=== PATIENT | female | born 1945 | race Caucasian/White ===

== ENCOUNTER 2017-07-24 12:47 | Emergency (ER) | payer MEDICARE, MEDICAID ==
[~2017-07-24] VITALS: Ht 160 cm; Wt 50.0 kg
[~2017-07-24 12:47] MED LIST: BAC10T PO; CITA20TA11 PO; LEVO25TA50 PO; LORA1TAB PO; MAG400T PO; METO50TA7 PO; NOR5T PO; NORCO10T PO; OMEP-84 PO; QUET-1 PO
[2017-07-24 13:25] VITALS: BP_DIAS 89
[2017-07-24 15:19] LABS: BASOPHILS % (AUTO) 0.6 % (0-1); EOSINOPHILS # (AUTO) 0.1 X10'3 (0-0.9); EOSINOPHILS % (AUTO) 2.2 % (0-6); HEMATOCRIT 39.4 % (35.0-45.0); HEMOGLOBIN 13.3 g/dl (12.0-16.0); LYMPHOCYTES # (AUTO) 1.1 X10'3 (1.1-4.8); LYMPHOCYTES % (AUTO) 20.3 % (21-51); MEAN CORPUSCULAR HEMOGLOBIN 34.5 PG (27.0-31.0); MEAN CORPUSCULAR HGB CONC 33.7 % (33.0-36.5); MEAN CORPUSCULAR VOLUME 102.4 FL (78-98); MEAN PLATELET VOLUME 6.7 FL (7.4-10.4); MONOCYTES # (AUTO) 0.5 X10'3 (0-0.9); MONOCYTES % (AUTO) 10.2 % (2-12); NEUTROPHILS # (AUTO) 3.5 X10'3 (1.8-7.7); NEUTROPHILS % (AUTO) 66.7 % (42-75); PLATELET COUNT 254 X10'3 (140-440); RED BLOOD COUNT 3.85 X10'6 (4.20-5.60); RED CELL DISTRIBUTION WIDTH 13.3 % (11.5-14.5); WHITE BLOOD COUNT 5.3 X10'3 (4.5-11.0)
[2017-07-24 15:30] VITALS: BP_SYST 145
[2017-07-24 15:33] LABS: ALANINE AMINOTRANSFERASE 39 U/L (12-78); ALBUMIN 3.9 G/DL (3.4-5.0); ALBUMIN/GLOBULIN RATIO 1.2 (1.1-1.5); ALKALINE PHOSPHATASE 112 IU/L (46-116); ANION GAP 9 (8-16); ASPARTATE AMINO TRANSFERASE 23 U/L (10-37); BILIRUBIN,TOTAL 0.3 MG/DL (0.1-1.0); BLOOD UREA NITROGEN 15 MG/DL (7-18); BUN/CREATININE RATIO 14.4 (6.6-38.0); CALCIUM 9.4 MG/DL (8.5-10.1); CHLORIDE 105 MMOL/L (99-107); CREATININE 1.04 MG/DL (0.40-0.90); GLUCOSE 95 MG/DL (70-104); POTASSIUM 3.5 MMOL/L (3.5-5.1); SODIUM 142 MMOL/L (135-145); TOTAL PROTEIN 7.2 G/DL (6.4-8.2); eGFR 52 ML/MIN
[2017-07-24 15:42] LABS: ETHANOL < 0.010 GM/DL (0.0-0.010)
[2017-07-24 16:07] LABS: CLARITY,URINE Clear (Clear); COLOR,URINE Yellow (Yellow); GLUCOSE, URINE Negative (Neg); KETONES,URINE Negative (Neg); LEUKOCYTE ESTERASE ,URINE Trace (Neg); NITRITES, URINE Negative (Neg); OCCULT BLOOD,URINE Negative (Neg); PH,URINE 5.5 (4.8-8.0); PROTEIN,URINE Negative (Neg)
[2017-07-24 16:09] LABS: UA COLLECTION TYPE CLN CATCH MIDSTREAM; URINE AMPHETAMINE SCREEN NEGATIVE (Neg); URINE BARBITUATE SCREEN NEGATIVE (Neg); URINE BENZODIAZEPINES SCREEN NEGATIVE (Neg); URINE CANNABINOID SCREEN POSITIVE (Neg); URINE COCAINE SCREEN NEGATIVE (Neg); URINE METHADONE SCREEN NEGATIVE (Neg); URINE OPIATE SCREEN POSITIVE (Neg); URINE PHENCYCLIDINE SCREEN NEGATIVE (Neg)
[2017-07-24 16:18] LABS: SQUAMOUS EPITHELIAL CELL,UR MODERATE /LPF (FEW); TRANSITIONAL EPI CELLS,URINE FEW /HPF
[2017-07-24 16:19] LABS: BACTERIA,URINE FEW /HPF (Neg); RBC,URINE NONE SEEN /HPF (0-2); RENAL CELLS, URINE FEW /HPF; WBC,URINE 0-4 /HPF (0-4)
[2017-07-25] MEDS ORDERED: SERT100T PO (08:22)
[2017-07-25] MEDS ORDERED: ZOLP10TA5 PO (08:22)
[2017-07-25] MEDS ORDERED: TRAZ-146 PO (08:22)
== END 2017-07-24 18:17 | disposition home or self-care (01) ==
LOC: ER 12:49
DX: R62.7 Adult failure to thrive (principal); R53.1 Weakness; F32.9 Major depressive disorder, single episode, unspecified; R63.0 Anorexia; F12.10 Cannabis abuse, uncomplicated; Z88.1 Allergy status to other antibiotic agents; Z79.899 Other long term (current) drug therapy
CPT/HCPCS: 36415; 80053; 80305; 80320; 81001; 84443; 85025; 99284

== ENCOUNTER 2017-07-24 17:25 | Inpatient (IN) | payer MEDICARE, MEDICAID ==
[~2017-07-24] VITALS: Ht 160 cm; Wt 49.9 kg
[2017-07-24 20:00] VITALS: BP 164/98
[2017-07-24] MEDS ORDERED: zolpidem 5mg tablet PO PRN (21:40)
[2017-07-24] MEDS: traZODone 50mg tablet PO SCH (21:58)
[2017-07-24] MEDS: HYDROcodone/acetaminophen 10/325mg tab PO PRN (21:58)
[2017-07-24] MEDS: pantoprazole 40mg Tablet.DR PO SCH (22:11)
[2017-07-25] MEDS ORDERED: LORazepam 1 MG tablet PO PRN
[2017-07-25] MEDS ORDERED: LORazepam 1 MG tablet PO SCH
[2017-07-25] MEDS ORDERED: levoTHYROXINE 25mcg tablet PO SCH (07:00)
[2017-07-25] MEDS: levoTHYROXINE 25mcg tablet PO SCH (07:09)
[2017-07-25] MEDS ORDERED: non-formulary drug (Omeprazole* (Prilosec*) 1 CAP) PO SCH (08:00)
[2017-07-25] MEDS ORDERED: sertraline 50mg tablet PO SCH (08:00)
[2017-07-25] MEDS ORDERED: ZOLP10TA5 PO (08:22)
[2017-07-25] MEDS ORDERED: SERT100T PO (08:22)
[2017-07-25] MEDS ORDERED: TRAZ-146 PO (08:22)
[2017-07-25] MEDS: amLODIPine 5mg tablet PO SCH ×2 (08:25→20:04)
[2017-07-25] MEDS ORDERED: non-formulary drug (Zolpidem Tartrate* (Ambien*) 1 TAB) PO PRN (08:25)
[2017-07-25] MEDS: pantoprazole 40mg Tablet.DR PO SCH ×2 (08:25→17:30)
[2017-07-25] MEDS: metoprolol succinate 25mg (24-HOUR) SR. Tablet PO SCH (08:26)
[2017-07-25 08:29] VITALS: BP 141/72
[2017-07-25] MEDS ORDERED: sertraline 50mg tablet PO ONE (08:35)
[2017-07-25 08:52] LABS: BASOPHILS # (AUTO) 0.1 X10'3 (0-0.2); BASOPHILS % (AUTO) 1.1 % (0-1); EOSINOPHILS # (AUTO) 0.1 X10'3 (0-0.9); HEMATOCRIT 39.9 % (35.0-45.0); HEMOGLOBIN 13.6 g/dl (12.0-16.0); LYMPHOCYTES % (AUTO) 20.7 % (21-51); MEAN CORPUSCULAR HEMOGLOBIN 34.9 PG (27.0-31.0); MEAN CORPUSCULAR VOLUME 102.5 FL (78-98); MONOCYTES # (AUTO) 0.4 X10'3 (0-0.9); MONOCYTES % (AUTO) 9.3 % (2-12); NEUTROPHILS # (AUTO) 3.1 X10'3 (1.8-7.7); NEUTROPHILS % (AUTO) 65.9 % (42-75); PLATELET COUNT 235 X10'3 (140-440); RED BLOOD COUNT 3.89 X10'6 (4.20-5.60); RED CELL DISTRIBUTION WIDTH 13.1 % (11.5-14.5); WHITE BLOOD COUNT 4.6 X10'3 (4.5-11.0)
[2017-07-25 09:12] LABS: ALANINE AMINOTRANSFERASE 35 U/L (12-78); ALBUMIN 3.8 G/DL (3.4-5.0); ALBUMIN/GLOBULIN RATIO 1.2 (1.1-1.5); ALKALINE PHOSPHATASE 107 IU/L (46-116); ANION GAP 8 (8-16); ASPARTATE AMINO TRANSFERASE 22 U/L (10-37); BILIRUBIN,TOTAL 0.5 MG/DL (0.1-1.0); BLOOD UREA NITROGEN 12 MG/DL (7-18); BUN/CREATININE RATIO 10.9 (6.6-38.0); CALCIUM 9.6 MG/DL (8.5-10.1); CHLORIDE 106 MMOL/L (99-107); GLUCOSE 105 MG/DL (70-104); POTASSIUM 3.9 MMOL/L (3.5-5.1); SODIUM 142 MMOL/L (135-145); TOTAL CARBON DIOXIDE 28.1 MMOL/L (24-32); TOTAL PROTEIN 7.1 G/DL (6.4-8.2); eGFR 49 ML/MIN
[2017-07-25 20:00] VITALS: BP 131/73
[2017-07-25] MEDS: LORazepam 1 MG tablet PO PRN (20:04)
[2017-07-25] MEDS: traZODone 50mg tablet PO SCH (20:04)
[2017-07-25] MEDS: HYDROcodone/acetaminophen 10/325mg tab PO PRN ×2 (20:07→21:59)
[2017-07-25] MEDS ORDERED: non-formulary drug (Trazodone HCl 1 TAB) PO SCH (21:00)
[2017-07-26] MEDS: levoTHYROXINE 25mcg tablet PO SCH (07:32)
[2017-07-26] MEDS: pantoprazole 40mg Tablet.DR PO SCH ×2 (07:32→17:49)
[2017-07-26] MEDS: sertraline 50mg tablet PO SCH (07:33)
[2017-07-26 07:51] VITALS: BP 113/69
[2017-07-26] MEDS: metoprolol succinate 25mg (24-HOUR) SR. Tablet PO SCH (07:58)
[2017-07-26] MEDS: amLODIPine 5mg tablet PO SCH ×2 (07:58→20:31)
[2017-07-26] MEDS ORDERED: sertraline 50mg tablet PO SCH ×2 (08:00)
[2017-07-26] MEDS ORDERED: non-formulary drug (Sertraline Hcl (Zoloft) 1 TAB) PO SCH (08:00)
[2017-07-26] MEDS: HYDROcodone/acetaminophen 10/325mg tab PO PRN ×2 (11:58→20:37)
[2017-07-26 20:27] VITALS: BP 120/63
[2017-07-26] MEDS: traZODone 50mg tablet PO SCH (20:31)
[2017-07-27] MEDS: pantoprazole 40mg Tablet.DR PO SCH ×2 (07:19→17:18)
[2017-07-27] MEDS: levoTHYROXINE 25mcg tablet PO SCH (07:19)
[2017-07-27 08:00] VITALS: BP 106/70
[2017-07-27] MEDS: amLODIPine 5mg tablet PO SCH ×2 (08:00→20:17)
[2017-07-27] MEDS: sertraline 50mg tablet PO SCH (08:09)
[2017-07-27] MEDS: metoprolol succinate 25mg (24-HOUR) SR. Tablet PO SCH (08:10)
[2017-07-27] MEDS: HYDROcodone/acetaminophen 10/325mg tab PO PRN ×2 (10:53→19:25)
[2017-07-27] MEDS: Protein Shake (high protein) 240ml (8oz) cup PO SCH (17:30)
[2017-07-27 20:00] VITALS: BP 116/59
[2017-07-27] MEDS: traZODone 50mg tablet PO SCH (20:17)
[2017-07-28 08:00] VITALS: BP 135/77
[2017-07-28] MEDS: pantoprazole 40mg Tablet.DR PO SCH ×2 (08:13→16:52)
[2017-07-28] MEDS: amLODIPine 5mg tablet PO SCH ×2 (08:13→20:22)
[2017-07-28] MEDS: metoprolol succinate 25mg (24-HOUR) SR. Tablet PO SCH (08:13)
[2017-07-28] MEDS: levoTHYROXINE 25mcg tablet PO SCH (08:13)
[2017-07-28] MEDS: HYDROcodone/acetaminophen 10/325mg tab PO PRN ×2 (09:25→20:21)
[2017-07-28] MEDS: sertraline 50mg tablet PO SCH (09:26)
[2017-07-28] MEDS: Protein Shake (high protein) 240ml (8oz) cup PO SCH ×2 (12:30→17:30)
[2017-07-28 20:00] VITALS: BP 130/68
[2017-07-28] MEDS: traZODone 50mg tablet PO SCH (20:21)
[2017-07-28 22:42] VITALS: BP 130/68
[2017-07-29] MEDS: pantoprazole 40mg Tablet.DR PO SCH ×2 (07:32→17:30)
[2017-07-29] MEDS: levoTHYROXINE 25mcg tablet PO SCH (07:32)
[2017-07-29 07:36] VITALS: BP 109/59
[2017-07-29] MEDS: amLODIPine 5mg tablet PO SCH ×2 (08:00→20:25)
[2017-07-29] MEDS: metoprolol succinate 25mg (24-HOUR) SR. Tablet PO SCH (08:25)
[2017-07-29] MEDS: HYDROcodone/acetaminophen 10/325mg tab PO PRN ×2 (08:26→20:34)
[2017-07-29] MEDS: Protein Shake (high protein) 240ml (8oz) cup PO SCH ×2 (12:30→18:00)
[2017-07-29] MEDS ORDERED: mag hydrox/Alum hydrox/simeth 30ml oral suspension PO ONE (15:40)
[2017-07-29] MEDS ORDERED: magnesium hydroxide 30ml (MOM) UD suspension PO ONE (15:40)
[2017-07-29 19:54] VITALS: BP 143/78
[2017-07-29] MEDS: traZODone 50mg tablet PO SCH (20:25)
[2017-07-30] MEDS: LORazepam 1 MG tablet PO PRN ×2 (00:12→20:47)
[2017-07-30] MEDS: HYDROcodone/acetaminophen 10/325mg tab PO PRN ×3 (02:40→20:47)
[2017-07-30 07:27] VITALS: BP 97/58
[2017-07-30] MEDS: levoTHYROXINE 25mcg tablet PO SCH (07:31)
[2017-07-30] MEDS ORDERED: magnesium hydroxide 30ml (MOM) UD suspension PO PRN (08:05)
[2017-07-30] MEDS: sertraline 50mg tablet PO SCH (08:22)
[2017-07-30] MEDS: pantoprazole 40mg Tablet.DR PO SCH ×2 (08:22→17:53)
[2017-07-30] MEDS: metoprolol succinate 25mg (24-HOUR) SR. Tablet PO SCH (08:22)
[2017-07-30] MEDS: amLODIPine 5mg tablet PO SCH ×2 (08:22→20:46)
[2017-07-30 08:29] VITALS: BP 111/64
[2017-07-30] MEDS: Protein Shake (high protein) 240ml (8oz) cup PO SCH ×2 (12:30→17:30)
[2017-07-30 18:57] VITALS: BP 132/73
[2017-07-30 19:00] VITALS: BP 132/73
[2017-07-30] MEDS ORDERED: aripiprazole 5mg tablet PO SCH (21:00)
[2017-07-30] MEDS ORDERED: traZODone 50mg tablet PO SCH (21:00)
[2017-07-31 03:36] VITALS: BP 132/73
[2017-07-31] MEDS: levoTHYROXINE 25mcg tablet PO SCH (07:19)
[2017-07-31 08:00] VITALS: BP 114/64
[2017-07-31] MEDS: pantoprazole 40mg Tablet.DR PO SCH (08:07)
[2017-07-31] MEDS: sertraline 50mg tablet PO SCH (08:07)
[2017-07-31] MEDS: metoprolol succinate 25mg (24-HOUR) SR. Tablet PO SCH (08:07)
[2017-07-31] MEDS: amLODIPine 5mg tablet PO SCH (08:07)
[2017-07-31] MEDS ORDERED: ATI1T PO (08:57)
[2017-07-31] MEDS ORDERED: SERT100T10 PO (08:57)
[2017-07-31] MEDS ORDERED: TRAZ-143 PO (08:57)
[2017-07-31] MEDS ORDERED: ARIP5TAB20 PO (08:57)
[2017-07-31] MEDS: HYDROcodone/acetaminophen 10/325mg tab PO PRN (10:17)
== END 2017-07-31 14:10 | disposition home or self-care (01) | DRG 885 ==
LOC: ADULT MH 17:25
PROVIDERS: ADMIT Psychiatry & Neurology Psychiatry; ATTEND Psychiatry & Neurology Psychiatry
DX: F33.2 Major depressive disorder, recurrent severe without psychotic features (principal); E03.9 Hypothyroidism, unspecified; I10 Essential (primary) hypertension; F41.9 Anxiety disorder, unspecified; G47.00 Insomnia, unspecified; F12.90 Cannabis use, unspecified, uncomplicated; Z90.49 Acquired absence of other specified parts of digestive tract; Z79.899 Other long term (current) drug therapy; Z88.8 Allergy status to other drugs, medicaments and biological substances; Z85.819 Personal history of malignant neoplasm of unspecified site of lip, oral cavity, and pharynx; Z87.891 Personal history of nicotine dependence; Z85.118 Personal history of other malignant neoplasm of bronchus and lung; Z92.21 Personal history of antineoplastic chemotherapy; Z92.3 Personal history of irradiation; Z81.8 Family history of other mental and behavioral disorders; Z83.3 Family history of diabetes mellitus
CPT/HCPCS: 36415; 80053; 84443; 85025; 87070

== ENCOUNTER 2018-05-02 12:33 | Emergency (ER) | payer MEDICARE, MEDICAID ==
[~2018-05-02] VITALS: Ht 160 cm; Wt 58.0 kg
[~2018-05-02 12:33] MED LIST changes: +ARIP5TAB20 PO; +ATI1T PO; -BAC10T PO; -CITA20TA11 PO; -LORA1TAB PO; -MAG400T PO; +ONDA4TAB12 PO; -QUET-1 PO; +SERT100T10 PO; +TRAZ-218 PO
[2018-05-02] MEDS ORDERED: normal saline 1000ML IV soln IVB ONE (13:20)
[2018-05-02 13:42] LABS: ALANINE AMINOTRANSFERASE 25 U/L (12-78); ALBUMIN 3.9 G/DL (3.4-5.0); ALBUMIN/GLOBULIN RATIO 1.1 (1.1-1.5); ALKALINE PHOSPHATASE 150 IU/L (46-116); ANION GAP 6 (8-16); ASPARTATE AMINO TRANSFERASE 27 U/L (10-37); BILIRUBIN,TOTAL 0.6 MG/DL (0.1-1.0); BLOOD UREA NITROGEN 11 MG/DL (7-18); BUN/CREATININE RATIO 10.1 (6.6-38.0); CALCIUM 9.3 MG/DL (8.5-10.1); CHLORIDE 102 MMOL/L (99-107); CREATININE 1.09 MG/DL (0.40-0.90); GLUCOSE 94 MG/DL (70-104); POTASSIUM 3.3 MMOL/L (3.5-5.1); SODIUM 141 MMOL/L (135-145); TOTAL CARBON DIOXIDE 32.9 MMOL/L (24-32); TOTAL PROTEIN 7.6 G/DL (6.4-8.2); eGFR 49 ML/MIN
[2018-05-02 13:53] LABS: BASOPHILS % (AUTO) 0.8 % (0-1); EOSINOPHILS # (AUTO) 0.1 X10'3 (0-0.9); EOSINOPHILS % (AUTO) 2.4 % (0-6); LYMPHOCYTES # (AUTO) 1.1 X10'3 (1.1-4.8); LYMPHOCYTES % (AUTO) 18.5 % (21-51); MEAN CORPUSCULAR HEMOGLOBIN 34.2 PG (27.0-31.0); MEAN CORPUSCULAR HGB CONC 33.3 % (33.0-36.5); MEAN CORPUSCULAR VOLUME 102.5 FL (78-98); MEAN PLATELET VOLUME 7.5 FL (7.4-10.4); MONOCYTES # (AUTO) 0.6 X10'3 (0-0.9); MONOCYTES % (AUTO) 10.4 % (2-12); NEUTROPHILS # (AUTO) 4.1 X10'3 (1.8-7.7); NEUTROPHILS % (AUTO) 67.9 % (42-75); PLATELET COUNT 232 X10'3 (140-440); RED BLOOD COUNT 4.09 X10'6 (4.20-5.60); RED CELL DISTRIBUTION WIDTH 11.8 % (11.5-14.5); WHITE BLOOD COUNT 5.9 X10'3 (4.5-11.0)
[2018-05-02 14:58] LABS: CLARITY,URINE CLEAR (Clear); COLOR,URINE STRAW (Yellow); GLUCOSE, URINE NEGATIVE (Neg); KETONES,URINE NEGATIVE (Neg); LEUKOCYTE ESTERASE ,URINE NEGATIVE (Neg); NITRITES, URINE NEGATIVE (Neg); OCCULT BLOOD,URINE NEGATIVE (Neg); PROTEIN,URINE NEGATIVE (Neg); UROBILINOGEN,URINE 0.2 E.U/dL (0.2-1.0)
[2018-05-02 15:01] LABS: UA COLLECTION TYPE CLN CATCH MIDSTREAM
[2018-05-02 16:30] VITALS: BP 171/61
== END 2018-05-02 17:05 | disposition home or self-care (01) ==
LOC: ER 12:34
DX: S00.83XA Contusion of other part of head, initial encounter (principal); E86.0 Dehydration; R42 Dizziness and giddiness; F12.90 Cannabis use, unspecified, uncomplicated; F32.9 Major depressive disorder, single episode, unspecified; Z88.1 Allergy status to other antibiotic agents; Z79.899 Other long term (current) drug therapy; W01.198A Fall on same level from slipping, tripping and stumbling with subsequent striking against other object, initial encounter; Y93.89 Activity, other specified; Y92.89 Other specified places as the place of occurrence of the external cause; Y99.9 Unspecified external cause status
CPT/HCPCS: 36415; 70450; 80053; 81003; 85025; 96360; 99285

== ENCOUNTER 2018-05-30 16:41 | Inpatient (IN) | payer MEDICARE, MEDICAID ==
[~2018-05-30] VITALS: Ht 160 cm; Wt 57.4 kg
[2018-05-30 17:06] LABS: BASOPHILS # (AUTO) 0.1 X10'3 (0-0.2); BASOPHILS % (AUTO) 0.8 % (0-1); EOSINOPHILS # (AUTO) 0.2 X10'3 (0-0.9); EOSINOPHILS % (AUTO) 2.4 % (0-6); HEMATOCRIT 42.3 % (35.0-45.0); HEMOGLOBIN 14.3 g/dl (12.0-16.0); LYMPHOCYTES # (AUTO) 1.2 X10'3 (1.1-4.8); LYMPHOCYTES % (AUTO) 18.3 % (21-51); MEAN CORPUSCULAR HEMOGLOBIN 34.7 PG (27.0-31.0); MEAN CORPUSCULAR HGB CONC 33.9 % (33.0-36.5); MEAN CORPUSCULAR VOLUME 102.2 FL (78-98); MEAN PLATELET VOLUME 6.9 FL (7.4-10.4); MONOCYTES # (AUTO) 0.7 X10'3 (0-0.9); MONOCYTES % (AUTO) 9.8 % (2-12); NEUTROPHILS # (AUTO) 4.5 X10'3 (1.8-7.7); NEUTROPHILS % (AUTO) 68.7 % (42-75); PLATELET COUNT 266 X10'3 (140-440); RED BLOOD COUNT 4.14 X10'6 (4.20-5.60); RED CELL DISTRIBUTION WIDTH 11.9 % (11.5-14.5); WHITE BLOOD COUNT 6.7 X10'3 (4.5-11.0)
[2018-05-30 17:22] LABS: ALANINE AMINOTRANSFERASE 25 U/L (12-78); ALBUMIN 3.9 G/DL (3.4-5.0); ALBUMIN/GLOBULIN RATIO 1.1 (1.1-1.5); ALKALINE PHOSPHATASE 141 IU/L (46-116); ANION GAP 11 (8-16); ASPARTATE AMINO TRANSFERASE 23 U/L (10-37); BILIRUBIN,TOTAL 0.5 MG/DL (0.1-1.0); BLOOD UREA NITROGEN 19 MG/DL (7-18); BUN/CREATININE RATIO 15.1 (6.6-38.0); CALCIUM 9.8 MG/DL (8.5-10.1); CHLORIDE 97 MMOL/L (99-107); CREATININE 1.26 MG/DL (0.40-0.90); GLUCOSE 92 MG/DL (70-104); POTASSIUM 3.2 MMOL/L (3.5-5.1); PROTHROMBIN TIME 9.9 SECONDS (9.0-12.0); SODIUM 139 MMOL/L (135-145); TOTAL CARBON DIOXIDE 31.4 MMOL/L (24-32); TOTAL PROTEIN 7.6 G/DL (6.4-8.2); eGFR 42 ML/MIN
[2018-05-30 17:32] LABS: CLARITY,URINE CLEAR (Clear); COLOR,URINE YELLOW (Yellow); GLUCOSE, URINE NEGATIVE (Neg); KETONES,URINE NEGATIVE (Neg); LEUKOCYTE ESTERASE ,URINE NEGATIVE (Neg); NITRITES, URINE NEGATIVE (Neg); OCCULT BLOOD,URINE NEGATIVE (Neg); PROTEIN,URINE NEGATIVE (Neg); UROBILINOGEN,URINE 0.2 E.U/dL (0.2-1.0)
[2018-05-30 17:40] LABS: LIPASE 1191 U/L (73-393)
[2018-05-30 17:41] LABS: UA COLLECTION TYPE STRAIGHT CATH
[2018-05-30] MEDS ORDERED: normal saline 1000ML IV soln IVB ONE (18:05)
[2018-05-30] MEDS ORDERED: LEVO50TA8 PO (18:28)
[2018-05-30] MEDS ORDERED: ONDA4TAB9 SL (18:28)
[2018-05-30] MEDS ORDERED: LOSA25TA96 PO (18:28)
[2018-05-30] MEDS ORDERED: AMIT-189 PO (18:28)
[2018-05-30] MEDS ORDERED: PANT40TA4 PO (18:28)
[2018-05-30] MEDS ORDERED: LORA1TAB PO (18:28)
[2018-05-30] MEDS ORDERED: ondansetron/PF 4mg/2ml inj IV PRN ×4 (19:10→19:45)
[2018-05-30] MEDS ORDERED: mag hydrox/Alum hydrox/simeth 30ml oral suspension PO PRN ×4 (19:10→19:45)
[2018-05-30] MEDS ORDERED: acetaminophen 325mg tablet PO PRN ×4 (19:10→19:45)
[2018-05-30] MEDS ORDERED: magnesium hydroxide 30ml (MOM) UD suspension PO PRN ×4 (19:10→19:45)
[2018-05-30] MEDS ORDERED: LORazepam 1 MG tablet PO PRN (19:10)
[2018-05-30] MEDS ORDERED: HYDROcodone/acetaminophen 10/325mg tab PO PRN (19:45)
[2018-05-30] MEDS ORDERED: bisacodyl 10mg suppository rectal RC PRN (19:45)
[2018-05-30] MEDS ORDERED: diphenhydrAMINE 25mg capsule PO PRN (19:45)
[2018-05-30] MEDS ORDERED: potassium Cl 20 mEq SR tablet PO PRN ×2 (19:45)
[2018-05-30] MEDS ORDERED: diphenhydrAMINE 50 mg/ml inj IV PRN (19:45)
[2018-05-30] MEDS ORDERED: acetaminophen 650mg rectal suppository RC PRN (19:45)
[2018-05-30] MEDS ORDERED: HYDROcodone/acetaminophen 5mg/325mg tablet PO PRN (19:45)
[2018-05-30] MEDS ORDERED: potassium Cl 40MEQ/NS 500ml 500 ML IV PRN ×2 (19:45)
[2018-05-30] MEDS ORDERED: morphine 2 MG/ML inj. syringe IV PRN ×2 (19:45)
[2018-05-30] MEDS ORDERED: metoclopramide 5 mg/ml inj IV PRN (19:45)
[2018-05-30] MEDS ORDERED: HYDROmorphone 1 mg/ml syringe IV PRN ×2 (19:45)
[2018-05-30 20:07] LABS: HEMOGLOBIN A1C 5.3 % (4.5-6.2)
[2018-05-30 20:14] LABS: MAGNESIUM 1.5 MG/DL (1.5-2.4)
[2018-05-30] MEDS: heparin, porcine 5000 units/ml vial SQ SCH (20:33)
[2018-05-30] MEDS: pantoprazole 40 MG vial IV SCH (20:33)
[2018-05-30] MEDS: potassium Cl 20mEq in NS 1,000 ML IV SCH (20:34)
[2018-05-30] MEDS: docusate sod 100mg capsule PO SCH (20:34)
[2018-05-30] MEDS ORDERED: amitryptiline 50mg tablet PO SCH (21:00)
[2018-05-30] MEDS ORDERED: temazepam 15mg capsule PO PRN (21:00)
[2018-05-30 21:05] VITALS: BP 138/71
[2018-05-30] MEDS: amitriptyline 25mg tablet PO SCH (21:43)
[2018-05-31 04:16] VITALS: BP 141/82
[2018-05-31] MEDS: potassium Cl 20mEq in NS 1,000 ML IV SCH ×2 (05:43→15:55)
[2018-05-31 05:46] LABS: BASOPHILS % (AUTO) 0.7 % (0-1); EOSINOPHILS # (AUTO) 0.2 X10'3 (0-0.9); EOSINOPHILS % (AUTO) 4.4 % (0-6); HEMATOCRIT 36.2 % (35.0-45.0); HEMOGLOBIN 12.3 g/dl (12.0-16.0); LYMPHOCYTES # (AUTO) 0.8 X10'3 (1.1-4.8); LYMPHOCYTES % (AUTO) 23.6 % (21-51); MEAN CORPUSCULAR HEMOGLOBIN 34.9 PG (27.0-31.0); MEAN CORPUSCULAR VOLUME 102.6 FL (78-98); MEAN PLATELET VOLUME 7.1 FL (7.4-10.4); MONOCYTES # (AUTO) 0.4 X10'3 (0-0.9); MONOCYTES % (AUTO) 11.5 % (2-12); NEUTROPHILS # (AUTO) 2.1 X10'3 (1.8-7.7); NEUTROPHILS % (AUTO) 59.8 % (42-75); PLATELET COUNT 184 X10'3 (140-440); RED BLOOD COUNT 3.52 X10'6 (4.20-5.60); RED CELL DISTRIBUTION WIDTH 12.5 % (11.5-14.5); WHITE BLOOD COUNT 3.5 X10'3 (4.5-11.0)
[2018-05-31 06:03] LABS: ALANINE AMINOTRANSFERASE 22 U/L (12-78); ALBUMIN 2.9 G/DL (3.4-5.0); ALKALINE PHOSPHATASE 104 IU/L (46-116); ANION GAP 8 (8-16); ASPARTATE AMINO TRANSFERASE 20 U/L (10-37); BILIRUBIN,TOTAL 0.5 MG/DL (0.1-1.0); BLOOD UREA NITROGEN 14 MG/DL (7-18); BUN/CREATININE RATIO 13.5 (6.6-38.0); CALCIUM 8.6 MG/DL (8.5-10.1); CHLORIDE 109 MMOL/L (99-107); CHOLESTEROL 174 MG/DL (0-200); CREATININE 1.04 MG/DL (0.40-0.90); GLUCOSE 78 MG/DL (70-104); HDL CHOLESTEROL 87 MG/DL (35-60); LDL CHOLESTEROL 73 MG/DL (50-100); POTASSIUM 3.7 MMOL/L (3.5-5.1); SODIUM 144 MMOL/L (135-145); TOTAL CARBON DIOXIDE 27.5 MMOL/L (24-32); TOTAL PROTEIN 5.8 G/DL (6.4-8.2); TRIGLYCERIDES 61 MG/DL (20-135); eGFR 52 ML/MIN
[2018-05-31 07:09] VITALS: BP 117/79
[2018-05-31] MEDS: K and/or MAG REPLACEMENT MC SCH (08:00)
[2018-05-31] MEDS: pantoprazole 40 MG vial IV SCH ×2 (09:09→20:07)
[2018-05-31] MEDS: docusate sod 100mg capsule PO SCH ×2 (09:09→20:18)
[2018-05-31] MEDS: losartan 25mg tablet PO SCH (09:10)
[2018-05-31] MEDS: levoTHYROXINE 25mcg tablet PO SCH (09:10)
[2018-05-31] MEDS: heparin, porcine 5000 units/ml vial SQ SCH ×2 (09:11→20:21)
[2018-05-31 12:00] VITALS: BP 146/60
[2018-05-31 20:00] VITALS: BP 163/91
[2018-05-31] MEDS: amitriptyline 25mg tablet PO SCH (20:18)
[2018-06-01 00:31] VITALS: BP 143/79
[2018-06-01] MEDS: potassium Cl 20mEq in NS 1,000 ML IV SCH ×2 (01:38→12:16)
[2018-06-01 06:35] LABS: ALANINE AMINOTRANSFERASE 23 U/L (12-78); ALBUMIN 2.9 G/DL (3.4-5.0); ALKALINE PHOSPHATASE 101 IU/L (46-116); ANION GAP 10 (8-16); ASPARTATE AMINO TRANSFERASE 22 U/L (10-37); BILIRUBIN,TOTAL 0.5 MG/DL (0.1-1.0); BLOOD UREA NITROGEN 9 MG/DL (7-18); BUN/CREATININE RATIO 10.2 (6.6-38.0); CALCIUM 8.5 MG/DL (8.5-10.1); CHLORIDE 108 MMOL/L (99-107); CREATININE 0.88 MG/DL (0.40-0.90); GLUCOSE 81 MG/DL (70-104); POTASSIUM 3.6 MMOL/L (3.5-5.1); SODIUM 143 MMOL/L (135-145); TOTAL CARBON DIOXIDE 25.2 MMOL/L (24-32); TOTAL PROTEIN 5.9 G/DL (6.4-8.2); eGFR 63 ML/MIN
[2018-06-01] MEDS: docusate sod 100mg capsule PO SCH (07:43)
[2018-06-01] MEDS: levoTHYROXINE 25mcg tablet PO SCH (07:43)
[2018-06-01] MEDS: losartan 25mg tablet PO SCH (07:44)
[2018-06-01] MEDS: pantoprazole 40 MG vial IV SCH (07:44)
[2018-06-01] MEDS: heparin, porcine 5000 units/ml vial SQ SCH (07:44)
[2018-06-01 08:00] VITALS: BP 135/91
[2018-06-01] MEDS: K and/or MAG REPLACEMENT MC SCH (08:00)
[2018-06-01 11:50] VITALS: BP 158/92
== END 2018-06-01 14:26 | disposition home or self-care (01) | DRG 682 ==
LOC: ER 16:42 → ED HOLD 19:09 → EDBEDREQ 20:12 → SUR 3N 21:00
PROVIDERS: ADMIT Family Medicine; ATTEND Internal Medicine
DX: N17.9 Acute kidney failure, unspecified (principal); K85.90 Acute pancreatitis without necrosis or infection, unspecified; E87.6 Hypokalemia; R91.1 Solitary pulmonary nodule; E86.0 Dehydration; F12.90 Cannabis use, unspecified, uncomplicated; F32.9 Major depressive disorder, single episode, unspecified; R62.7 Adult failure to thrive; D35.02 Benign neoplasm of left adrenal gland; D35.01 Benign neoplasm of right adrenal gland; I10 Essential (primary) hypertension; J44.9 Chronic obstructive pulmonary disease, unspecified; Z90.49 Acquired absence of other specified parts of digestive tract; Z88.1 Allergy status to other antibiotic agents; Z88.8 Allergy status to other drugs, medicaments and biological substances; Z87.891 Personal history of nicotine dependence; Z92.21 Personal history of antineoplastic chemotherapy; Z85.850 Personal history of malignant neoplasm of thyroid; Z85.118 Personal history of other malignant neoplasm of bronchus and lung; Z83.3 Family history of diabetes mellitus; Z81.8 Family history of other mental and behavioral disorders; Z79.899 Other long term (current) drug therapy
CPT/HCPCS: 36415; 71250; 74176; 80053; 80061; 81003; 83036; 83690; 83735; 83880; 84100; 85025; 85610; 87070; 93306; 96360; 99285; C9113; G0378; J1644; J2405

== ENCOUNTER 2018-06-05 17:57 | Emergency (ER) | payer MEDICARE, MEDICAID ==
[~2018-06-05] VITALS: Ht 160 cm; Wt 49.8 kg
[~2018-06-05 17:57] MED LIST changes: +AMIT-189 PO; -ARIP5TAB20 PO; -ATI1T PO; -LEVO25TA50 PO; +LEVO50TA8 PO; +LORA1TAB PO; +LOSA25TA96 PO; -METO50TA7 PO; -NOR5T PO; -NORCO10T PO; -OMEP-84 PO; -ONDA4TAB12 PO; +ONDA4TAB9 SL; +PANT40TA4 PO; -SERT100T10 PO; -TRAZ-218 PO
[2018-06-05 19:29] LABS: BASOPHILS % (AUTO) 0.3 % (0-1); EOSINOPHILS # (AUTO) 0.2 X10'3 (0-0.9); EOSINOPHILS % (AUTO) 5.1 % (0-6); HEMATOCRIT 35.1 % (35.0-45.0); HEMOGLOBIN 11.7 g/dl (12.0-16.0); LYMPHOCYTES # (AUTO) 0.8 X10'3 (1.1-4.8); LYMPHOCYTES % (AUTO) 19.6 % (21-51); MEAN CORPUSCULAR HEMOGLOBIN 34.5 PG (27.0-31.0); MEAN CORPUSCULAR HGB CONC 33.4 % (33.0-36.5); MEAN CORPUSCULAR VOLUME 103.4 FL (78-98); MEAN PLATELET VOLUME 7.2 FL (7.4-10.4); MONOCYTES # (AUTO) 0.4 X10'3 (0-0.9); MONOCYTES % (AUTO) 11.2 % (2-12); NEUTROPHILS # (AUTO) 2.5 X10'3 (1.8-7.7); NEUTROPHILS % (AUTO) 63.8 % (42-75); PLATELET COUNT 217 X10'3 (140-440); RED CELL DISTRIBUTION WIDTH 12.9 % (11.5-14.5); WHITE BLOOD COUNT 3.9 X10'3 (4.5-11.0)
[2018-06-05 19:35] LABS: ALANINE AMINOTRANSFERASE 25 U/L (12-78); ALBUMIN 2.9 G/DL (3.4-5.0); ALBUMIN/GLOBULIN RATIO 0.8 (1.1-1.5); ALKALINE PHOSPHATASE 109 IU/L (46-116); ANION GAP 7 (8-16); ASPARTATE AMINO TRANSFERASE 16 U/L (10-37); BILIRUBIN,TOTAL 0.3 MG/DL (0.1-1.0); BLOOD UREA NITROGEN 9 MG/DL (7-18); CHLORIDE 103 MMOL/L (99-107); GLUCOSE 79 MG/DL (70-104); POTASSIUM 3.2 MMOL/L (3.5-5.1); SODIUM 141 MMOL/L (135-145); TOTAL CARBON DIOXIDE 31.4 MMOL/L (24-32); TOTAL PROTEIN 6.4 G/DL (6.4-8.2); eGFR 55 ML/MIN
[2018-06-05 19:41] LABS: MAGNESIUM 1.7 MG/DL (1.5-2.4)
[2018-06-05 20:33] VITALS: BP 151/99
[2018-06-05 21:41] LABS: CLARITY,URINE CLEAR (Clear); COLOR,URINE STRAW (Yellow); GLUCOSE, URINE NEGATIVE (Neg); KETONES,URINE NEGATIVE (Neg); LEUKOCYTE ESTERASE ,URINE NEGATIVE (Neg); NITRITES, URINE NEGATIVE (Neg); OCCULT BLOOD,URINE NEGATIVE (Neg); PROTEIN,URINE NEGATIVE (Neg); UROBILINOGEN,URINE 0.2 E.U/dL (0.2-1.0)
[2018-06-05 21:49] LABS: UA COLLECTION TYPE CLN CATCH MIDSTREAM
[2018-06-05] MEDS ORDERED: potassium Cl 20 mEq SR tablet PO STA (22:09)
== END 2018-06-05 22:35 | disposition home or self-care (01) ==
LOC: ER 17:58
DX: S09.90XA Unspecified injury of head, initial encounter (principal); R42 Dizziness and giddiness; F12.90 Cannabis use, unspecified, uncomplicated; Z88.1 Allergy status to other antibiotic agents; Z79.899 Other long term (current) drug therapy; W19.XXXA Unspecified fall, initial encounter; Y93.01 Activity, walking, marching and hiking; Y92.89 Other specified places as the place of occurrence of the external cause; Y99.9 Unspecified external cause status
CPT/HCPCS: 36415; 70450; 71045; 80053; 81003; 83735; 83880; 84484; 85025; 93005; 99285

== ENCOUNTER 2018-08-13 11:00 | Inpatient (IN) | payer MEDICARE, MEDICAID ==
[~2018-08-13] VITALS: Ht 162.6 cm; Wt 52.3 kg
--- NOTE | 2018-08-13 12:16 | NUR ---
SPOKE WITH PATIENT AND BROTHER AB0UT DISCUSSING MEDICATIONS WITH PMD SUCH AMITRYPTILINE AND LORAZEPAM THAT CAN CONTRIBUTE TO DIZZYNESS AND OR FALLING
--- NOTE | 2018-08-13 12:17 | NUR ---
PATIENT HAD NECK CANCER WITH TREATMENT IN 2013 PATIENT IS CURRENTLY BEING WORKED UP FOR A SUSPICIOUS AREA IN HER LUNG AND RECENTLY HAS " A SCAN" AT [facility]
--- NOTE | 2018-08-13 12:45 | NUR ---
Patient back in room from CT at this time.
[2018-08-13] MEDS ORDERED: meclizine 12.5mg tablet PO ONE (13:35)
[2018-08-13] MEDS ORDERED: ondansetron 4mg rapidly disintigrating tab PO ONE (13:35)
--- NOTE | 2018-08-13 13:50 | NUR ---
PATIENT'S PULSE OX READING 45 FOR HEART RATE I WALKED BY AND ASKED TECH TO PLACE PATIENT ON A 5 LEAD EKG
[2018-08-13] MEDS ORDERED: normal saline 1000ML IV soln IVB ONE (15:15)
--- NOTE | 2018-08-13 15:17 | NUR ---
ATTEMPTED TO AMBULATE PT PT C O DIZZINESS WHILE SITTING AT EDGE OF BED STRONGLY ENCOURAGED PT TO TAKE A FEW STEPS PT TOOK TWO STEPS AND COMPLAINED OF DIZZINESS AND SAID SHE "I CAN'T DO IT" LI CHAUHAN MADE AWARE AND DR KOWALSKI.
[2018-08-13 16:37] LABS: BASOPHILS % (AUTO) 0.1 % (0-1); EOSINOPHILS % (AUTO) 0 % (0-6); HEMATOCRIT 38.9 % (35.0-45.0); HEMOGLOBIN 13.1 g/dl (12.0-16.0); LYMPHOCYTES # (AUTO) 0.5 X10'3 (1.1-4.8); LYMPHOCYTES % (AUTO) 4.6 % (21-51); MEAN CORPUSCULAR HEMOGLOBIN 34.1 PG (27.0-31.0); MEAN CORPUSCULAR HGB CONC 33.8 % (33.0-36.5); MEAN CORPUSCULAR VOLUME 100.8 FL (78-98); MEAN PLATELET VOLUME 7.3 FL (7.4-10.4); MONOCYTES # (AUTO) 0.8 X10'3 (0-0.9); MONOCYTES % (AUTO) 6.9 % (2-12); NEUTROPHILS # (AUTO) 9.9 X10'3 (1.8-7.7); NEUTROPHILS % (AUTO) 88.4 % (42-75); PLATELET COUNT 201 X10'3 (140-440); RED BLOOD COUNT 3.86 X10'6 (4.20-5.60); RED CELL DISTRIBUTION WIDTH 12.6 % (11.5-14.5); WHITE BLOOD COUNT 11.2 X10'3 (4.5-11.0)
[2018-08-13 16:53] LABS: ALANINE AMINOTRANSFERASE 31 U/L (12-78); ALBUMIN 2.8 G/DL (3.4-5.0); ALBUMIN/GLOBULIN RATIO 0.7 (1.1-1.5); ALKALINE PHOSPHATASE 108 IU/L (46-116); ANION GAP 13 (8-16); ASPARTATE AMINO TRANSFERASE 43 U/L (10-37); BILIRUBIN,TOTAL 0.5 MG/DL (0.1-1.0); BLOOD UREA NITROGEN 22 MG/DL (7-18); BUN/CREATININE RATIO 19.1 (6.6-38.0); CHLORIDE 98 MMOL/L (99-107); CREATININE 1.15 MG/DL (0.40-0.90); GLUCOSE 104 MG/DL (70-104); POTASSIUM 3.2 MMOL/L (3.5-5.1); SODIUM 135 MMOL/L (135-145); TOTAL CARBON DIOXIDE 24.5 MMOL/L (24-32); TOTAL PROTEIN 6.6 G/DL (6.4-8.2); eGFR 46 ML/MIN
--- NOTE | 2018-08-13 17:59 | NUR ---
CHANGED GOWN AND REPOSITIONED PATIENT: PATIENT HAD VOMIT ON HER GOWN : PATIENT VOMITED BROWN AND CLEAR LIQUID ABOUT 100 ML
[2018-08-13] MEDS ORDERED: potassium Cl 20 mEq SR tablet PO PRN ×2 (18:00)
[2018-08-13] MEDS ORDERED: proCHLORperazine 10 MG/2 ml inj IV PRN (18:00)
[2018-08-13] MEDS ORDERED: morphine 4 MG/ML inj SYRINge IV PRN ×2 (18:00)
[2018-08-13] MEDS ORDERED: mag hydrox/Alum hydrox/simeth 30ml oral suspension PO PRN (18:00)
[2018-08-13] MEDS ORDERED: potassium Cl 40MEQ/NS 500ml 500 ML IV PRN ×2 (18:00)
[2018-08-13] MEDS ORDERED: ipratropium/albuterol 3ml nebule NEB PRN (18:00)
[2018-08-13] MEDS ORDERED: acetaminophen 325mg tablet PO PRN (18:00)
[2018-08-13] MEDS ORDERED: ondansetron/PF 4mg/2ml inj IV PRN (18:00)
--- NOTE | 2018-08-13 18:00 | NUR ---
PRIMARY RN TIEN INFORMED OF PATIENT CONTINUING TO VOMIT
[2018-08-13] MEDS ORDERED: ondansetron/PF 4mg/2ml inj IV ONE (18:05)
--- NOTE | 2018-08-13 18:27 | NUR ---
Patient is unsure of her current medicaions. Per the pts family member the ED pharamacist was working on calling [facility] to find out what her current medicaions are, but it was not completed and [facility] is now closed. Reported this off to Tash JEFFERSON.
[2018-08-13 18:32] LABS: LIPASE 62 U/L (73-393)
[2018-08-13] MEDS: normal saline 1000ml 1,000 ML IV SCH (19:04)
[2018-08-13 19:42] LABS: CLARITY,URINE CLOUDY (Clear); COLOR,URINE YELLOW (Yellow); GLUCOSE, URINE NEGATIVE (Neg); KETONES,URINE 15 mg/dl (Neg); LEUKOCYTE ESTERASE ,URINE TRACE (Neg); NITRITES, URINE POSITIVE (Neg); OCCULT BLOOD,URINE MODERATE (Neg); PH,URINE 5.5 (4.8-8.0); PROTEIN,URINE 30 mg/dl (Neg); UROBILINOGEN,URINE 0.2 E.U/dL (0.2-1.0)
[2018-08-13 19:47] LABS: UA COLLECTION TYPE STRAIGHT CATH
[2018-08-13 19:49] LABS: BACTERIA,URINE 4+ /HPF (Neg); SQUAMOUS EPITHELIAL CELL,UR NONE SEEN /LPF (FEW); WBC,URINE 30-50 /HPF (0-4)
[2018-08-13] MEDS: heparin, porcine 5000 units/ml vial SQ SCH (20:30)
--- NOTE | 2018-08-13 20:44 | NUR ---
Dr Santos notified of UA and rocephin 1 gm IV ordered daily.
[2018-08-13] MEDS: sucralfate 1gm/10ml UD suspension PO SCH (21:00)
[2018-08-13 21:20] VITALS: BP 122/88
[2018-08-14] VITALS (7 sets, daily range): BP systolic 119–137; BP diastolic 69–94
[2018-08-14] MEDS: normal saline 1000ml 1,000 ML IV SCH ×4 (00:47→21:53)
[2018-08-14 06:39] LABS: BASOPHILS % (AUTO) 0.1 % (0-1); EOSINOPHILS % (AUTO) 0 % (0-6); HEMATOCRIT 35.3 % (35.0-45.0); HEMOGLOBIN 12.1 g/dl (12.0-16.0); LYMPHOCYTES # (AUTO) 0.3 X10'3 (1.1-4.8); LYMPHOCYTES % (AUTO) 3.7 % (21-51); MEAN CORPUSCULAR HEMOGLOBIN 34.5 PG (27.0-31.0); MEAN CORPUSCULAR HGB CONC 34.1 % (33.0-36.5); MEAN CORPUSCULAR VOLUME 101.2 FL (78-98); MEAN PLATELET VOLUME 7.9 FL (7.4-10.4); MONOCYTES # (AUTO) 0.7 X10'3 (0-0.9); NEUTROPHILS # (AUTO) 8.1 X10'3 (1.8-7.7); NEUTROPHILS % (AUTO) 88.2 % (42-75); PLATELET COUNT 158 X10'3 (140-440); RED BLOOD COUNT 3.49 X10'6 (4.20-5.60); RED CELL DISTRIBUTION WIDTH 12.7 % (11.5-14.5); WHITE BLOOD COUNT 9.2 X10'3 (4.5-11.0)
[2018-08-14 06:47] LABS: ALANINE AMINOTRANSFERASE 30 U/L (12-78); ALBUMIN 2.5 G/DL (3.4-5.0); ALBUMIN/GLOBULIN RATIO 0.7 (1.1-1.5); ALKALINE PHOSPHATASE 94 IU/L (46-116); ANION GAP 15 (8-16); ASPARTATE AMINO TRANSFERASE 38 U/L (10-37); BILIRUBIN,TOTAL 0.4 MG/DL (0.1-1.0); BLOOD UREA NITROGEN 22 MG/DL (7-18); BUN/CREATININE RATIO 19.5 (6.6-38.0); CALCIUM 7.5 MG/DL (8.5-10.1); CHLORIDE 104 MMOL/L (99-107); CHOL/HDL RATIO 1.9 (0.00-4.99); CHOLESTEROL 134 MG/DL (0-200); CREATININE 1.13 MG/DL (0.40-0.90); GLUCOSE 89 MG/DL (70-104); HDL CHOLESTEROL 69 MG/DL (35-60); LDL CHOLESTEROL 41 MG/DL (50-100); LIPASE 76 U/L (73-393); POTASSIUM 4.6 MMOL/L (3.5-5.1); SODIUM 138 MMOL/L (135-145); TOTAL CARBON DIOXIDE 19.3 MMOL/L (24-32); TRIGLYCERIDES 106 MG/DL (20-135); eGFR 47 ML/MIN
[2018-08-14] MEDS: K and/or MAG REPLACEMENT MC SCH (08:00)
[2018-08-14] MEDS ORDERED: iohexol 350MG/ML 100ml bottle IV ONE (09:57)
[2018-08-14] MEDS ORDERED: [UNRECOGNIZED DRUG - CODE] (10:28)
[2018-08-14] MEDS ORDERED: FAMO20TA8 PO (10:29)
[2018-08-14] MEDS ORDERED: POTA8CAP9 PO (10:36)
[2018-08-14] MEDS ORDERED: ASPI-1265 PO (10:37)
[2018-08-14] MEDS: heparin, porcine 5000 units/ml vial SQ SCH ×2 (10:53→20:46)
[2018-08-14] MEDS: sucralfate 1gm/10ml UD suspension PO SCH ×3 (10:54→20:48)
[2018-08-14] MEDS: CefTRIAXone/D5W-Rocephin 1gm 50 ML IV SCH (10:56)
[2018-08-14] MEDS: levoFLOXACIN-Levaquin 500mg/D5 100 ML IV SCH (16:49)
[2018-08-14] MEDS ORDERED: LORazepam 2 mg/ml vial IV PRN (17:15)
[2018-08-14] MEDS: LORazepam 1 MG tablet PO PRN (18:06)
--- NOTE | 2018-08-14 19:00 | NUR ---
placed wick due to pt's incont and elevated HR in 120-130. noted red bottom - zinc applied
[2018-08-14] MEDS: amitriptyline 25mg tablet PO SCH (20:45)
[2018-08-14] MEDS ORDERED: CefTRIAXone/D5W-Rocephin 1gm 50 ML IV SCH (21:00)
[2018-08-15] MEDS: LORazepam 1 MG tablet PO PRN (00:25)
[2018-08-15 05:00] VITALS: BP 129/80
[2018-08-15 06:14] LABS: BASOPHILS % (AUTO) 0.2 % (0-1); EOSINOPHILS % (AUTO) 0.1 % (0-6); HEMATOCRIT 36.1 % (35.0-45.0); HEMOGLOBIN 12.4 g/dl (12.0-16.0); LYMPHOCYTES # (AUTO) 0.5 X10'3 (1.1-4.8); LYMPHOCYTES % (AUTO) 6.1 % (21-51); MEAN CORPUSCULAR HEMOGLOBIN 34.4 PG (27.0-31.0); MEAN CORPUSCULAR HGB CONC 34.3 % (33.0-36.5); MEAN CORPUSCULAR VOLUME 100.4 FL (78-98); MEAN PLATELET VOLUME 8.2 FL (7.4-10.4); MONOCYTES # (AUTO) 0.8 X10'3 (0-0.9); NEUTROPHILS # (AUTO) 6.6 X10'3 (1.8-7.7); NEUTROPHILS % (AUTO) 83.6 % (42-75); PLATELET COUNT 140 X10'3 (140-440); RED CELL DISTRIBUTION WIDTH 12.8 % (11.5-14.5); WHITE BLOOD COUNT 7.9 X10'3 (4.5-11.0)
[2018-08-15 06:15] LABS: ALANINE AMINOTRANSFERASE 27 U/L (12-78); ALBUMIN 2.1 G/DL (3.4-5.0); ALBUMIN/GLOBULIN RATIO 0.6 (1.1-1.5); ALKALINE PHOSPHATASE 88 IU/L (46-116); ANION GAP 14 (8-16); ASPARTATE AMINO TRANSFERASE 30 U/L (10-37); BILIRUBIN,TOTAL 0.3 MG/DL (0.1-1.0); BLOOD UREA NITROGEN 13 MG/DL (7-18); BUN/CREATININE RATIO 14.1 (6.6-38.0); CALCIUM 7.3 MG/DL (8.5-10.1); CHLORIDE 102 MMOL/L (99-107); CREATININE 0.92 MG/DL (0.40-0.90); GLUCOSE 88 MG/DL (70-104); SODIUM 135 MMOL/L (135-145); TOTAL CARBON DIOXIDE 18.7 MMOL/L (24-32); TOTAL PROTEIN 5.5 G/DL (6.4-8.2); eGFR 60 ML/MIN
--- NOTE | 2018-08-15 06:36 | NUR ---
reported to days. noted pt HR elevated, tolerating ok at this time. continue to monitor. pending CT results from [facility] - and if MRI can be completed with port a cath.
[2018-08-15] MEDS: K and/or MAG REPLACEMENT MC SCH (07:30)
[2018-08-15] MEDS: sucralfate 1gm/10ml UD suspension PO SCH ×4 (08:25→20:46)
[2018-08-15] MEDS: potassium chloride 8mEq ER tablet PO SCH (08:25)
[2018-08-15] MEDS: losartan 25mg tablet PO SCH (08:26)
[2018-08-15] MEDS: levoTHYROXINE 25mcg tablet PO SCH (08:26)
[2018-08-15] MEDS: CefTRIAXone/D5W-Rocephin 1gm 50 ML IV SCH (08:26)
[2018-08-15] MEDS: levoFLOXACIN-Levaquin 500mg/D5 100 ML IV SCH (08:27)
[2018-08-15] MEDS: heparin, porcine 5000 units/ml vial SQ SCH ×2 (08:34→20:47)
[2018-08-15] MEDS ORDERED: gadobutrol 10mmol/10ml inj. IV ONE (10:59)
[2018-08-15] MEDS ORDERED: magnesium 2GM in 50ml NS 50 ML IV PRN (11:35)
[2018-08-15] MEDS ORDERED: magnesium 4gm in 100ml NS 100 ML IV PRN (11:35)
[2018-08-15 12:15] LABS: MAGNESIUM 1.5 MG/DL (1.5-2.4)
[2018-08-15 17:25] LABS: MAGNESIUM 1.7 MG/DL (1.5-2.4); POTASSIUM 3.5 MMOL/L (3.5-5.1)
[2018-08-15 18:00] VITALS: BP 120/80
--- NOTE | 2018-08-15 18:20 | NUR ---
Report to Marcela JEFFERSON
[2018-08-15] MEDS: amitriptyline 25mg tablet PO SCH (20:47)
[2018-08-15 22:00] VITALS: BP 111/67
[2018-08-16 05:00] VITALS: BP 104/58
--- NOTE | 2018-08-16 06:21 | NUR ---
REPORT GIVEN TO LI BECKER.
[2018-08-16 06:49] LABS: BASOPHILS % (AUTO) 0.2 % (0-1); EOSINOPHILS # (AUTO) 0.1 X10'3 (0-0.9); EOSINOPHILS % (AUTO) 2.1 % (0-6); HEMATOCRIT 33.2 % (35.0-45.0); HEMOGLOBIN 11.3 g/dl (12.0-16.0); LYMPHOCYTES # (AUTO) 0.6 X10'3 (1.1-4.8); LYMPHOCYTES % (AUTO) 9.6 % (21-51); MEAN CORPUSCULAR VOLUME 99.8 FL (78-98); MONOCYTES # (AUTO) 0.7 X10'3 (0-0.9); MONOCYTES % (AUTO) 12.7 % (2-12); NEUTROPHILS # (AUTO) 4.5 X10'3 (1.8-7.7); NEUTROPHILS % (AUTO) 75.4 % (42-75); PLATELET COUNT 133 X10'3 (140-440); RED BLOOD COUNT 3.33 X10'6 (4.20-5.60); RED CELL DISTRIBUTION WIDTH 12.8 % (11.5-14.5); WHITE BLOOD COUNT 5.9 X10'3 (4.5-11.0)
[2018-08-16 06:53] LABS: ALANINE AMINOTRANSFERASE 24 U/L (12-78); ALBUMIN 1.8 G/DL (3.4-5.0); ALBUMIN/GLOBULIN RATIO 0.5 (1.1-1.5); ALKALINE PHOSPHATASE 79 IU/L (46-116); ANION GAP 12 (8-16); ASPARTATE AMINO TRANSFERASE 23 U/L (10-37); BILIRUBIN,TOTAL 0.3 MG/DL (0.1-1.0); BLOOD UREA NITROGEN 8 MG/DL (7-18); BUN/CREATININE RATIO 8.6 (6.6-38.0); CALCIUM 7.5 MG/DL (8.5-10.1); CHLORIDE 105 MMOL/L (99-107); CREATININE 0.93 MG/DL (0.40-0.90); GLUCOSE 82 MG/DL (70-104); MAGNESIUM 1.5 MG/DL (1.5-2.4); SODIUM 137 MMOL/L (135-145); TOTAL PROTEIN 5.1 G/DL (6.4-8.2); eGFR 59 ML/MIN
[2018-08-16 07:08] LABS: POTASSIUM 2.9 MMOL/L (3.5-5.1)
--- NOTE | 2018-08-16 07:34 | NUR ---
Page to Dr. Harris [id number] Joycelyn Winters Patients K is 2.9, she has scheduled 8ER and I will replace her
[2018-08-16] MEDS: K and/or MAG REPLACEMENT MC SCH (07:44)
[2018-08-16] MEDS: sucralfate 1gm/10ml UD suspension PO SCH ×2 (07:52→11:46)
[2018-08-16] MEDS: CefTRIAXone/D5W-Rocephin 1gm 50 ML IV SCH (07:52)
[2018-08-16] MEDS: levoTHYROXINE 25mcg tablet PO SCH (07:52)
[2018-08-16] MEDS: potassium chloride 8mEq ER tablet PO SCH (07:52)
[2018-08-16 07:57] VITALS: BP 112/67
[2018-08-16] MEDS: losartan 25mg tablet PO SCH (07:57)
[2018-08-16] MEDS ORDERED: propranolol 10mg tablet PO SCH (08:00)
[2018-08-16] MEDS: heparin, porcine 5000 units/ml vial SQ SCH (08:00)
[2018-08-16] MEDS ORDERED: potassium Cl oral solution 20 MEQ/15 ML PO PRN ×2 (08:57→08:58)
[2018-08-16 10:00] VITALS: BP 86/59
[2018-08-16] MEDS ORDERED: levoFLOXACIN 500mg tablet PO SCH (11:00)
== END 2018-08-16 13:15 | DRG 871 ==
LOC: ER 11:00 → ED HOLD 17:57 → EDBEDREQ 20:00 → ORTHO 4S 20:54
PROVIDERS: ADMIT Family Medicine; ATTEND Family Medicine
PROC: B3251ZZ Computerized Tomography (CT Scan) of Bilateral Common Carotid Arteries using Low Osmolar Contrast (ICD-10-PCS; principal; 2018-08-14)
PROC: B32G1ZZ Computerized Tomography (CT Scan) of Bilateral Vertebral Arteries using Low Osmolar Contrast (ICD-10-PCS; 2018-08-14)
PROC: B32R1ZZ Computerized Tomography (CT Scan) of Intracranial Arteries using Low Osmolar Contrast (ICD-10-PCS; 2018-08-14)
PROC: B3281ZZ Computerized Tomography (CT Scan) of Bilateral Internal Carotid Arteries using Low Osmolar Contrast (ICD-10-PCS; 2018-08-14)
PROC: BW38YZZ Magnetic Resonance Imaging (MRI) of Head using Other Contrast (ICD-10-PCS; 2018-08-15)
DX: A41.51 Sepsis due to Escherichia coli [E. coli] (principal); E43 Unspecified severe protein-calorie malnutrition; N39.0 Urinary tract infection, site not specified; Z68.1 Body mass index [BMI] 19.9 or less, adult; S09.90XA Unspecified injury of head, initial encounter; R29.6 Repeated falls; B96.20 Unspecified Escherichia coli [E. coli] as the cause of diseases classified elsewhere; E03.9 Hypothyroidism, unspecified; E78.00 Pure hypercholesterolemia, unspecified; E78.5 Hyperlipidemia, unspecified; W18.39XA Other fall on same level, initial encounter; E87.6 Hypokalemia; R00.0 Tachycardia, unspecified; F12.90 Cannabis use, unspecified, uncomplicated; F32.9 Major depressive disorder, single episode, unspecified; F41.0 Panic disorder [episodic paroxysmal anxiety]; I10 Essential (primary) hypertension; Z90.49 Acquired absence of other specified parts of digestive tract; Z88.8 Allergy status to other drugs, medicaments and biological substances; Z79.899 Other long term (current) drug therapy; Z85.118 Personal history of other malignant neoplasm of bronchus and lung; Z85.819 Personal history of malignant neoplasm of unspecified site of lip, oral cavity, and pharynx; Z87.891 Personal history of nicotine dependence; Z81.8 Family history of other mental and behavioral disorders; Z83.3 Family history of diabetes mellitus; Y93.89 Activity, other specified; Y92.092 Bedroom in other non-institutional residence as the place of occurrence of the external cause; Y99.8 Other external cause status
CPT/HCPCS: 36415; 70450; 70496; 70498; 70553; 71045; 80053; 80061; 81001; 83605; 83690; 83735; 84132; 85025; 87040; 87070; 87077; 87088; 87186; 92616; 93005; 93880; 94760; 96360; 96361; 97163; 97530; 99285; G0378; J0696; J0780; J1644; J1956; J2270; J2405; J3480; J7030; J8597; Q9967

== ENCOUNTER 2018-10-04 16:35 | Inpatient (IN) | payer MEDICARE, MEDICAID | END 2018-10-10 13:30 | LOC: ER 16:35 → ED HOLD 20:39 → SUR 3N 22:30 | DX: A41.9 Sepsis, unspecified organism (principal); J18.9 Pneumonia, unspecified organism; J96.00 Acute respiratory failure, unspecified whether with hypoxia or hypercapnia; E43 Unspecified severe protein-calorie malnutrition; A09 Infectious gastroenteritis and colitis, unspecified; N39.0 Urinary tract infection, site not specified; N17.9 Acute kidney failure, unspecified; E44.0 Moderate protein-calorie malnutrition; E86.0 Dehydration; E87.6 Hypokalemia; R91.1 Solitary pulmonary nodule ==

== ENCOUNTER 2018-10-16 19:11 | Inpatient (IN) | payer MEDICARE, MEDICAID ==
[~2018-10-16] VITALS: Ht 160 cm; Wt 50.0 kg
[~2018-10-16 19:11] MED LIST changes: +ASPI-1265 PO; +ATOR20TA66; -ONDA4TAB9 SL; +POTA8CAP9 PO
[2018-10-16] MEDS ORDERED: MAGN400O6 PO (21:01)
[2018-10-16] MEDS ORDERED: HYDR-3965 PO (21:01)
[2018-10-16] MEDS ORDERED: HYDR-4383 PO (21:01)
[2018-10-16] MEDS ORDERED: SIME125C PO (21:01)
[2018-10-16] MEDS ORDERED: METO-467 PO (21:01)
[2018-10-16] MEDS ORDERED: ACET-2119 PO (21:01)
[2018-10-16] MEDS ORDERED: OMEP20TA5 PO (21:01)
[2018-10-16] MEDS ORDERED: METO-292 PO (21:01)
[2018-10-16 21:08] LABS: BASOPHILS # (AUTO) 0.1 X10'3 (0-0.2); BASOPHILS % (AUTO) 1.3 % (0-1); EOSINOPHILS % (AUTO) 0.1 % (0-6); HEMATOCRIT 32.3 % (35.0-45.0); HEMOGLOBIN 10.9 g/dl (12.0-16.0); LYMPHOCYTES # (AUTO) 0.2 X10'3 (1.1-4.8); LYMPHOCYTES % (AUTO) 2.1 % (21-51); MEAN CORPUSCULAR HGB CONC 33.7 g/dL (33.0-36.5); MEAN PLATELET VOLUME 7.7 FL (7.4-10.4); MONOCYTES # (AUTO) 0.5 X10'3 (0-0.9); NEUTROPHILS # (AUTO) 9.7 X10'3 (1.8-7.7); NEUTROPHILS % (AUTO) 91.5 % (42-75); PLATELET COUNT 273 X10'3 (140-440); RED CELL DISTRIBUTION WIDTH 14.5 % (11.5-14.5); WHITE BLOOD COUNT 10.6 X10'3 (4.5-11.0)
[2018-10-16 21:30] LABS: ALANINE AMINOTRANSFERASE 16 U/L (12-78); ALBUMIN 2.1 G/DL (3.4-5.0); ALBUMIN/GLOBULIN RATIO 0.5 (1.1-1.5); ALKALINE PHOSPHATASE 103 IU/L (46-116); ANION GAP 9 (8-16); ASPARTATE AMINO TRANSFERASE 23 U/L (10-37); BILIRUBIN,TOTAL 0.2 MG/DL (0.1-1.0); BLOOD UREA NITROGEN 7 MG/DL (7-18); CHLORIDE 98 MMOL/L (99-107); CREATININE 1.16 MG/DL (0.40-0.90); GLUCOSE 125 MG/DL (70-104); LIPASE 221 U/L (73-393); POTASSIUM 3.5 MMOL/L (3.5-5.1); SODIUM 135 MMOL/L (135-145); TOTAL CARBON DIOXIDE 27.8 MMOL/L (24-32); eGFR 46 ML/MIN
[2018-10-16] MEDS ORDERED: normal saline 1000ML IV soln IVB ONE (22:05)
[2018-10-16 22:22] LABS: PLATELET ESTIMATE NORMAL; TOTAL CELLS COUNTED 100
[2018-10-16 22:23] LABS: POLYCHROMASIA 1+
[2018-10-16 23:48] LABS: CLARITY,URINE SLIGHTLY CLOUDY (Clear); COLOR,URINE YELLOW (Yellow); GLUCOSE, URINE NEGATIVE (Neg); KETONES,URINE NEGATIVE (Neg); LEUKOCYTE ESTERASE ,URINE TRACE (Neg); NITRITES, URINE NEGATIVE (Neg); OCCULT BLOOD,URINE LARGE (Neg); PH,URINE 5.5 (4.8-8.0); PROTEIN,URINE TRACE mg/dl (Neg); UA COLLECTION TYPE FOLEY CATH; UROBILINOGEN,URINE 0.2 E.U/dL (0.2-1.0)
[2018-10-16 23:56] LABS: BACTERIA,URINE 1+ /HPF (Neg); MUCUS STRANDS FEW /LPF (Neg); RBC,URINE TNTC /HPF (0-2); SQUAMOUS EPITHELIAL CELL,UR FEW /LPF (FEW); WBC,URINE TNTC /HPF (0-4); YEAST MODERATE /HPF (NEGATIVE)
[2018-10-17] MEDS ORDERED: CefTRIAXone/D5W-Rocephin 1gm 50 ML IV ONE (00:30)
[2018-10-17] MEDS: normal saline 1000ml 1,000 ML IV SCH ×3 (02:26→18:49)
[2018-10-17] MEDS ORDERED: metoclopramide 5 mg/ml inj IV PRN ×2 (02:30→03:12)
[2018-10-17] MEDS ORDERED: magnesium hydroxide 30ml (MOM) UD suspension PO PRN (02:30)
[2018-10-17] MEDS ORDERED: mag hydrox/Alum hydrox/simeth 30ml oral suspension PO PRN (02:30)
[2018-10-17] MEDS ORDERED: ondansetron/PF 4mg/2ml inj IV PRN (02:30)
[2018-10-17] MEDS ORDERED: acetaminophen 325mg tablet PO PRN (02:30)
--- NOTE | 2018-10-17 07:03 | NUR ---
Received report from Claritza JEFFERSON
[2018-10-17 07:24] VITALS: BP 112/62
--- NOTE | 2018-10-17 10:25 | NUR ---
Called CT back four times now. 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
--- NOTE | 2018-10-17 11:41 | NUR ---
Page to Dr. Nelson MESSAGE: [id number] Joycelyn Winters Here CT is done. Marely [id number]
[2018-10-17 12:12] LABS: C DIFF ANTIGEN NEGATIVE (NEGATIVE); C DIFF SPECIMEN=DIARRHEA? ACCEPTABLE; C DIFFICILE TOXINS A&B NEGATIVE (Neg)
[2018-10-17] MEDS: HYDROcodone/acetaminophen 5mg/325mg tablet PO PRN ×2 (14:26→20:57)
[2018-10-17] MEDS: pantoprazole 40mg Tablet.DR PO SCH (14:26)
[2018-10-17] MEDS: metoprolol tartrate 25mg tablet PO SCH ×2 (14:26→20:00)
[2018-10-17] MEDS: enoxaparin 30mg/0.3ml syringe SUBCUT SCH (14:27)
[2018-10-17] MEDS: magnesium hydroxide 30ml (MOM) UD suspension PO SCH ×2 (14:27→14:28)
--- NOTE | 2018-10-17 17:22 | NUR ---
The patient came with the catheter. Addendum: 10/17/18 at 1740 by Marely Crowe RN Amended: Links added.
[2018-10-17 18:00] VITALS: BP 105/56
--- NOTE | 2018-10-17 18:22 | NUR ---
Report to Dominique JEFFERSON
--- NOTE | 2018-10-17 18:35 | NUR ---
Patient in room ORTHO 4012. I have received report from Marely JEFFERSON and had the opportunity to ask questions and assume patient care.
[2018-10-17 20:49] VITALS: BP 91/49
[2018-10-17] MEDS: CefTRIAXone/D5W-Rocephin 1gm 50 ML IV SCH (20:51)
[2018-10-17 22:00] VITALS: BP 99/50
[2018-10-18 05:00] VITALS: BP 134/67
[2018-10-18 05:58] LABS: BASOPHILS % (AUTO) 0.4 % (0-1); EOSINOPHILS # (AUTO) 0.1 X10'3 (0-0.9); EOSINOPHILS % (AUTO) 1.4 % (0-6); HEMATOCRIT 26.9 % (35.0-45.0); HEMOGLOBIN 9.1 g/dl (12.0-16.0); LYMPHOCYTES # (AUTO) 0.2 X10'3 (1.1-4.8); LYMPHOCYTES % (AUTO) 5.2 % (21-51); MEAN CORPUSCULAR HGB CONC 33.9 g/dL (33.0-36.5); MEAN CORPUSCULAR VOLUME 100.4 FL (78-98); MEAN PLATELET VOLUME 7.4 FL (7.4-10.4); MONOCYTES # (AUTO) 0.4 X10'3 (0-0.9); MONOCYTES % (AUTO) 9.5 % (2-12); NEUTROPHILS # (AUTO) 3.6 X10'3 (1.8-7.7); NEUTROPHILS % (AUTO) 83.5 % (42-75); PLATELET COUNT 197 X10'3 (140-440); RED BLOOD COUNT 2.68 X10'6 (4.20-5.60); RED CELL DISTRIBUTION WIDTH 14.3 % (11.5-14.5); WHITE BLOOD COUNT 4.3 X10'3 (4.5-11.0)
[2018-10-18 06:05] LABS: ALBUMIN 1.5 G/DL (3.4-5.0); ANION GAP 8 (8-16); BLOOD UREA NITROGEN 4 MG/DL (7-18); BUN/CREATININE RATIO 4.8 (6.6-38.0); CALCIUM 7.9 MG/DL (8.5-10.1); CHLORIDE 105 MMOL/L (99-107); CREATININE 0.83 MG/DL (0.40-0.90); GLUCOSE 85 MG/DL (70-104); SODIUM 138 MMOL/L (135-145); TOTAL CARBON DIOXIDE 25.3 MMOL/L (24-32); eGFR 68 ML/MIN
[2018-10-18 06:12] LABS: POTASSIUM 2.9 MMOL/L (3.5-5.1)
[2018-10-18] MEDS ORDERED: potassium Cl 40MEQ/NS 500ml 500 ML IV PRN ×2 (06:15)
[2018-10-18] MEDS ORDERED: potassium Cl 20 mEq SR tablet PO PRN (06:15)
--- NOTE | 2018-10-18 06:49 | NUR ---
Problems reprioritized. Patient report given, questions answered & plan of care reviewed with Jana JEFFERSON.
--- NOTE | 2018-10-18 07:06 | NUR ---
Patient in room ORTHO 4012. I have received report from LI Fox and had the opportunity to ask questions and assume patient care.
[2018-10-18] MEDS: K and/or MAG REPLACEMENT MC SCH (08:00)
[2018-10-18] MEDS: HYDROcodone/acetaminophen 5mg/325mg tablet PO PRN (09:23)
[2018-10-18 10:00] VITALS: BP 116/66
[2018-10-18] MEDS: pantoprazole 40mg Tablet.DR PO SCH (10:22)
[2018-10-18] MEDS: normal saline 1000ml 1,000 ML IV SCH (10:22)
[2018-10-18] MEDS: metoprolol tartrate 25mg tablet PO SCH ×2 (10:23→19:28)
[2018-10-18] MEDS: enoxaparin 30mg/0.3ml syringe SUBCUT SCH (10:24)
--- NOTE | 2018-10-18 11:31 | NUR ---
PT reported pt experiencing R hand weakness during evaluation. mucker cofferdam notified and small neuro assessment performed. No significant weakness noted to the right hand. Will continue to monitor.
[2018-10-18] MEDS: potassium Cl 20 mEq SR tablet PO PRN ×3 (11:53→20:53)
[2018-10-18] MEDS: fluconazole-Diflucan 100MG/NS 50 ML IV SCH (17:00)
[2018-10-18 18:00] VITALS: BP 128/71
--- NOTE | 2018-10-18 18:21 | NUR ---
Problems reprioritized. Patient report given, questions answered & plan of care reviewed with LI Fox.
--- NOTE | 2018-10-18 18:24 | NUR ---
Patient in room ORTHO 4012. I have received report from Jana JEFFERSON and had the opportunity to ask questions and assume patient care.
[2018-10-18 19:27] VITALS: BP 139/76
[2018-10-18] MEDS: lactobacillus rhamnosus 10,000 MMU CELLS/CAPSULE PO SCH (19:28)
[2018-10-18] MEDS: metroNIDAZOLE-Flagyl 500mg/NS 100 ML IV SCH (19:28)
[2018-10-18] MEDS: CefTRIAXone/D5W-Rocephin 1gm 50 ML IV SCH (20:47)
[2018-10-18 22:00] VITALS: BP 121/63
[2018-10-19] MEDS: normal saline 1000ml 1,000 ML IV SCH (00:38)
[2018-10-19 06:00] VITALS: BP 122/72
[2018-10-19 06:08] LABS: ALBUMIN 1.6 G/DL (3.4-5.0); ANION GAP 7 (8-16); BLOOD UREA NITROGEN 3 MG/DL (7-18); BUN/CREATININE RATIO 4.2 (6.6-38.0); CALCIUM 8.1 MG/DL (8.5-10.1); CHLORIDE 106 MMOL/L (99-107); CREATININE 0.71 MG/DL (0.40-0.90); GLUCOSE 87 MG/DL (70-104); POTASSIUM 4.1 MMOL/L (3.5-5.1); SODIUM 139 MMOL/L (135-145); eGFR 81 ML/MIN
[2018-10-19 06:11] LABS: BASOPHILS % (AUTO) 1.1 % (0-1); EOSINOPHILS % (AUTO) 1.3 % (0-6); HEMOGLOBIN 9.1 g/dl (12.0-16.0); LYMPHOCYTES # (AUTO) 0.4 X10'3 (1.1-4.8); LYMPHOCYTES % (AUTO) 12.4 % (21-51); MEAN CORPUSCULAR HEMOGLOBIN 33.7 PG (27.0-31.0); MEAN CORPUSCULAR HGB CONC 33.6 g/dL (33.0-36.5); MEAN CORPUSCULAR VOLUME 100.3 FL (78-98); MONOCYTES # (AUTO) 0.5 X10'3 (0-0.9); NEUTROPHILS # (AUTO) 2.3 X10'3 (1.8-7.7); NEUTROPHILS % (AUTO) 70.2 % (42-75); PLATELET COUNT 200 X10'3 (140-440); RED CELL DISTRIBUTION WIDTH 14.3 % (11.5-14.5); WHITE BLOOD COUNT 3.3 X10'3 (4.5-11.0)
--- NOTE | 2018-10-19 06:15 | NUR ---
Patient in room ORTHO 4012. I have received report from Dominique JEFFERSON and had the opportunity to ask questions and assume patient care.
--- NOTE | 2018-10-19 06:29 | NUR ---
Problems reprioritized. Patient report given, questions answered & plan of care reviewed with Loyda JEFFERSON.
[2018-10-19] MEDS: magnesium hydroxide 30ml (MOM) UD suspension PO SCH (08:00)
[2018-10-19] MEDS: K and/or MAG REPLACEMENT MC SCH (08:00)
[2018-10-19] MEDS: fluconazole-Diflucan 100MG/NS 50 ML IV SCH (08:08)
[2018-10-19] MEDS: lactobacillus rhamnosus 10,000 MMU CELLS/CAPSULE PO SCH (08:13)
[2018-10-19 08:14] VITALS: BP_SYST 118
[2018-10-19] MEDS: pantoprazole 40mg Tablet.DR PO SCH (08:14)
[2018-10-19] MEDS: metoprolol tartrate 25mg tablet PO SCH (08:14)
[2018-10-19] MEDS: enoxaparin 30mg/0.3ml syringe SUBCUT SCH (08:14)
[2018-10-19] MEDS: metroNIDAZOLE-Flagyl 500mg/NS 100 ML IV SCH (09:32)
== END 2018-10-19 14:55 | DRG 757 ==
LOC: ER 19:11 → ED HOLD 10-17 02:26 → ORTHO 4S 10-17 07:10
PROVIDERS: ADMIT Hospitalist; ATTEND Family Medicine
DX: B37.49 Other urogenital candidiasis (principal); E43 Unspecified severe protein-calorie malnutrition; Z68.1 Body mass index [BMI] 19.9 or less, adult; E87.6 Hypokalemia; E03.9 Hypothyroidism, unspecified; E78.00 Pure hypercholesterolemia, unspecified; F03.90 Unspecified dementia, unspecified severity, without behavioral disturbance, psychotic disturbance, mood disturbance, and anxiety; I10 Essential (primary) hypertension; K21.9 Gastro-esophageal reflux disease without esophagitis; Z66 Do not resuscitate; F12.90 Cannabis use, unspecified, uncomplicated; F32.9 Major depressive disorder, single episode, unspecified; F41.9 Anxiety disorder, unspecified; G47.00 Insomnia, unspecified; R00.0 Tachycardia, unspecified; K52.89 Other specified noninfective gastroenteritis and colitis; R58 Hemorrhage, not elsewhere classified; Z88.1 Allergy status to other antibiotic agents; Z88.8 Allergy status to other drugs, medicaments and biological substances; Z83.3 Family history of diabetes mellitus; Z87.891 Personal history of nicotine dependence; Z90.49 Acquired absence of other specified parts of digestive tract; Z81.8 Family history of other mental and behavioral disorders; Z79.899 Other long term (current) drug therapy; Z98.891 History of uterine scar from previous surgery
CPT/HCPCS: 36415; 71045; 74176; 80048; 80053; 81001; 83605; 83690; 84132; 85025; 87070; 87088; 87324; 87449; 93005; 93926; 96361; 96365; 97110; 97116; 97161; 97530; 99285; G0378; J0696; J1450; J1650; J3490; J7030

== ENCOUNTER 2019-02-18 09:32 | Emergency (ER) | payer MEDICARE, MEDICAID ==
[~2019-02-18] VITALS: Ht 165.1 cm; Wt 50.0 kg
[~2019-02-18 09:32] MED LIST changes: +ACET-2119 PO; -AMIT-189 PO; -ASPI-1265 PO; -ATOR20TA66; +HYDR-3965 PO; +HYDR-4383 PO; -LEVO50TA8 PO; -LORA1TAB PO; -LOSA25TA96 PO; +MAGN400O6 PO; +METO-292 PO; +METO-467 PO; +OMEP20TA5 PO; -PANT40TA4 PO; -POTA8CAP9 PO; +SIME125C PO
[2019-02-18] MEDS ORDERED: normal saline 1000ML IV soln IVB ONE ×2 (09:45→10:40)
[2019-02-18] MEDS ORDERED: ondansetron/PF 4mg/2ml inj IV ONE (09:45)
[2019-02-18 10:03] LABS: BASOPHILS # (AUTO) 0.1 X10'3 (0-0.2); BASOPHILS % (AUTO) 1.1 % (0-1); EOSINOPHILS # (AUTO) 0.1 X10'3 (0-0.9); EOSINOPHILS % (AUTO) 1.9 % (0-6); HEMATOCRIT 40.4 % (35.0-45.0); HEMOGLOBIN 13.6 g/dl (12.0-16.0); LYMPHOCYTES # (AUTO) 1.8 X10'3 (1.1-4.8); LYMPHOCYTES % (AUTO) 27.7 % (21-51); MEAN CORPUSCULAR HEMOGLOBIN 33.6 PG (27.0-31.0); MEAN CORPUSCULAR HGB CONC 33.7 g/dL (33.0-36.5); MEAN CORPUSCULAR VOLUME 99.7 FL (78-98); MEAN PLATELET VOLUME 6.9 FL (7.4-10.4); MONOCYTES # (AUTO) 0.6 X10'3 (0-0.9); MONOCYTES % (AUTO) 9.6 % (2-12); NEUTROPHILS # (AUTO) 3.9 X10'3 (1.8-7.7); NEUTROPHILS % (AUTO) 59.7 % (42-75); PLATELET COUNT 299 X10'3 (140-440); RED BLOOD COUNT 4.05 X10'6 (4.20-5.60); RED CELL DISTRIBUTION WIDTH 12.9 % (11.5-14.5); WHITE BLOOD COUNT 6.6 X10'3 (4.5-11.0)
[2019-02-18 10:16] LABS: ALANINE AMINOTRANSFERASE 33 U/L (12-78); ALBUMIN 3.5 G/DL (3.4-5.0); ALBUMIN/GLOBULIN RATIO 0.9 (1.1-1.5); ALKALINE PHOSPHATASE 130 IU/L (46-116); ANION GAP 10 (8-16); ASPARTATE AMINO TRANSFERASE 27 U/L (10-37); BILIRUBIN,TOTAL 0.4 MG/DL (0.1-1.0); BLOOD UREA NITROGEN 7 MG/DL (7-18); BUN/CREATININE RATIO 6.9 (6.6-38.0); CALCIUM 9.2 MG/DL (8.5-10.1); CHLORIDE 101 MMOL/L (99-107); CREATININE 1.02 MG/DL (0.40-0.90); GLUCOSE 112 MG/DL (70-104); LIPASE 92 U/L (73-393); MAGNESIUM 1.8 MG/DL (1.5-2.4); POTASSIUM 3.8 MMOL/L (3.5-5.1); SODIUM 138 MMOL/L (135-145); TOTAL CARBON DIOXIDE 27.5 MMOL/L (24-32); TOTAL PROTEIN 7.5 G/DL (6.4-8.2); eGFR 53 ML/MIN
[2019-02-18 10:24] LABS: PARTIAL THROMBOPLASTIN TIME 29 SECONDS (22-32)
[2019-02-18 10:55] LABS: CLARITY,URINE CLEAR (Clear); COLOR,URINE YELLOW (Yellow); GLUCOSE, URINE NEGATIVE (Neg); KETONES,URINE NEGATIVE (Neg); LEUKOCYTE ESTERASE ,URINE NEGATIVE (Neg); NITRITES, URINE NEGATIVE (Neg); OCCULT BLOOD,URINE NEGATIVE (Neg); PROTEIN,URINE NEGATIVE (Neg); UROBILINOGEN,URINE 0.2 E.U/dL (0.2-1.0)
[2019-02-18 10:58] LABS: UA COLLECTION TYPE CLN CATCH MIDSTREAM
[2019-02-18 11:53] VITALS: BP 179/105
== END 2019-02-18 11:55 | disposition home or self-care (01) ==
LOC: ER 09:33
DX: R11.2 Nausea with vomiting, unspecified (principal); R10.31 Right lower quadrant pain; R91.8 Other nonspecific abnormal finding of lung field; E78.00 Pure hypercholesterolemia, unspecified; E03.9 Hypothyroidism, unspecified; F32.9 Major depressive disorder, single episode, unspecified; F12.90 Cannabis use, unspecified, uncomplicated; Z88.1 Allergy status to other antibiotic agents; Z88.6 Allergy status to analgesic agent; Z79.899 Other long term (current) drug therapy; Z98.890 Other specified postprocedural states; Z60.2 Problems related to living alone
CPT/HCPCS: 36415; 71045; 74176; 80053; 81003; 83605; 83690; 83735; 84145; 85025; 85610; 85730; 87040; 96361; 96374; 99284; J2405; J7030; 93005

== ENCOUNTER 2019-02-27 08:32 | Inpatient (IN) | payer MEDICARE, MEDICAID ==
[~2019-02-27] VITALS: Ht 160 cm; Wt 48.4 kg
[2019-02-27] VITALS (22 sets, daily range): BP systolic 122–184; BP diastolic 72–99
[2019-02-27] MEDS ORDERED: POTA10TA19 PO (09:15)
[2019-02-27] MEDS ORDERED: LEVO50TA PO (09:15)
[2019-02-27] MEDS ORDERED: PANT20TA3 PO (09:15)
[2019-02-27] MEDS ORDERED: LOSA25TA96 PO (09:15)
[2019-02-27] MEDS ORDERED: LORA1TAB PO (09:15)
[2019-02-27] MEDS ORDERED: CLOP75TA15 PO (09:15)
[2019-02-27] MEDS ORDERED: ATOR20TA PO (09:15)
[2019-02-27] MEDS ORDERED: midazolam 2 mg/2 ml injection ONE (09:36)
[2019-02-27] MEDS ORDERED: fentaNYL/PF 50MCG/1 ML 2ML syringe ONE (09:37)
[2019-02-27 09:45] LABS: BASOPHILS % (AUTO) 0.7 % (0-1); EOSINOPHILS # (AUTO) 0.1 X10'3 (0-0.9); EOSINOPHILS % (AUTO) 1.9 % (0-6); HEMATOCRIT 39.4 % (35.0-45.0); HEMOGLOBIN 13.2 g/dl (12.0-16.0); LYMPHOCYTES # (AUTO) 1.1 X10'3 (1.1-4.8); LYMPHOCYTES % (AUTO) 20.2 % (21-51); MEAN CORPUSCULAR HEMOGLOBIN 33.7 PG (27.0-31.0); MEAN CORPUSCULAR HGB CONC 33.6 g/dL (33.0-36.5); MEAN CORPUSCULAR VOLUME 100.3 FL (78-98); MEAN PLATELET VOLUME 6.9 FL (7.4-10.4); MONOCYTES # (AUTO) 0.5 X10'3 (0-0.9); MONOCYTES % (AUTO) 8.5 % (2-12); NEUTROPHILS # (AUTO) 3.8 X10'3 (1.8-7.7); NEUTROPHILS % (AUTO) 68.7 % (42-75); PLATELET COUNT 233 X10'3 (140-440); RED BLOOD COUNT 3.93 X10'6 (4.20-5.60); RED CELL DISTRIBUTION WIDTH 13.8 % (11.5-14.5); WHITE BLOOD COUNT 5.6 X10'3 (4.5-11.0)
[2019-02-27 09:51] LABS: ALBUMIN 3.5 G/DL (3.4-5.0); ANION GAP 7 (8-16); BLOOD UREA NITROGEN 8 MG/DL (7-18); BUN/CREATININE RATIO 7.5 (6.6-38.0); CHLORIDE 106 MMOL/L (99-107); CREATININE 1.07 MG/DL (0.40-0.90); GLUCOSE 85 MG/DL (70-104); POTASSIUM 4.1 MMOL/L (3.5-5.1); SODIUM 142 MMOL/L (135-145); TOTAL CARBON DIOXIDE 28.9 MMOL/L (24-32); eGFR 50 ML/MIN
[2019-02-27] MEDS ORDERED: gelatin sponge, absorbable (Gelfoam 12-7MM) sponge TP ONE (09:54)
[2019-02-27] MEDS: normal saline 1000ml 1,000 ML IV SCH ×2 (11:09→20:08)
[2019-02-27] MEDS ORDERED: HYDROcodone/acetaminophen 5mg/325mg tablet PO PRN ×3 (11:15→14:20)
[2019-02-27] MEDS ORDERED: ondansetron/PF 4mg/2ml inj IV PRN (11:50)
[2019-02-27] MEDS ORDERED: acetaminophen 325mg tablet PO PRN (11:50)
[2019-02-27] MEDS ORDERED: mag hydrox/Alum hydrox/simeth 30ml oral suspension PO PRN (11:50)
[2019-02-27] MEDS ORDERED: magnesium hydroxide 30ml (MOM) UD suspension PO PRN (11:50)
[2019-02-27] MEDS ORDERED: HYDROmorphone inj. 0.5 MG/0.5 ML DISP.SYRIN IV ONE (13:25)
--- NOTE | 2019-02-27 16:22 | NUR ---
Problems reprioritized. Patient report given, questions answered & plan of care reviewed with LI Berry. Will transfer PT up to surgical floor.
--- NOTE | 2019-02-27 16:22 | NUR ---
Received report from LI Hale. LI Hale reports that there is a "small air leak" in patient's chest tube but that the is aware of this.
[2019-02-27] MEDS: HYDROcodone/acetaminophen 10/325mg tab PO PRN ×2 (16:30→21:23)
--- NOTE | 2019-02-27 16:55 | NUR ---
Took PT to room 340A in stable condition by wheelchair. All belongings accounted for and sent with PT, PT agreed. PT was helped into bed and made comfortable. Call light within reach. Surgical floor space allocator and LI Berry at bedside with PT.
--- NOTE | 2019-02-27 17:22 | NUR ---
RECEIVED PATIENT TO ROOM 340A. PATIENT IS A&O AND IN NO APPARENT DISTRESS. PATIENT C/O PAIN WITH MOVEMENT AND WITH DEEP BREATHING AND COUGHING. CHEST TUBE TO WALL SUCTION, THERE IS SOME BUBBLING APPROX EVERY 5-10 SECONDS WHICH LI LEO STATED IS AWARE OF THIS. PATIENT PURSE PLACED IN BEDSIDE DRESSER AND BAG OF BELONGINGS ON TOP OF BEDSIDE DRESSER. PATIENT ORIENTED TO ROOM AND CALL LIGHT. CALL LIGHT PLACED WITHIN PATIENT'S REACH. BED IS LOW AND LOCKED.
--- NOTE | 2019-02-27 18:40 | NUR ---
Problems reprioritized. Patient report given, questions answered & plan of care reviewed with LI MARTINEZ.
--- NOTE | 2019-02-27 18:42 | NUR ---
Patient in room [facility] 340. I have received report from EARLENE JEFFERSON and had the opportunity to ask questions and assume patient care.
[2019-02-27] MEDS: HYDROmorphone inj. 0.5 MG/0.5 ML DISP.SYRIN IV PRN (18:52)
[2019-02-27] MEDS: heparin, porcine 5000 units/ml vial SQ SCH (20:04)
[2019-02-27] MEDS ORDERED: clopidogrel 75mg tablet PO SCH (21:00)
[2019-02-28] VITALS: BP 154/85
[2019-02-28] MEDS: HYDROmorphone inj. 0.5 MG/0.5 ML DISP.SYRIN IV PRN (03:51)
[2019-02-28 04:38] LABS: BASOPHILS % (AUTO) 0.7 % (0-1); EOSINOPHILS # (AUTO) 0.1 X10'3 (0-0.9); EOSINOPHILS % (AUTO) 1.2 % (0-6); HEMATOCRIT 38.6 % (35.0-45.0); HEMOGLOBIN 13.1 g/dl (12.0-16.0); LYMPHOCYTES # (AUTO) 1.2 X10'3 (1.1-4.8); LYMPHOCYTES % (AUTO) 17.6 % (21-51); MEAN CORPUSCULAR HEMOGLOBIN 33.5 PG (27.0-31.0); MEAN CORPUSCULAR HGB CONC 33.8 g/dL (33.0-36.5); MEAN CORPUSCULAR VOLUME 99.2 FL (78-98); MONOCYTES # (AUTO) 0.5 X10'3 (0-0.9); NEUTROPHILS # (AUTO) 4.9 X10'3 (1.8-7.7); NEUTROPHILS % (AUTO) 73.5 % (42-75); PLATELET COUNT 225 X10'3 (140-440); RED BLOOD COUNT 3.89 X10'6 (4.20-5.60); RED CELL DISTRIBUTION WIDTH 13.5 % (11.5-14.5); WHITE BLOOD COUNT 6.7 X10'3 (4.5-11.0)
[2019-02-28 04:48] LABS: ANION GAP 8 (8-16); BLOOD UREA NITROGEN 4 MG/DL (7-18); BUN/CREATININE RATIO 5.5 (6.6-38.0); CALCIUM 8.4 MG/DL (8.5-10.1); CHLORIDE 104 MMOL/L (99-107); CREATININE 0.73 MG/DL (0.40-0.90); GLUCOSE 96 MG/DL (70-104); POTASSIUM 3.3 MMOL/L (3.5-5.1); SODIUM 139 MMOL/L (135-145); TOTAL CARBON DIOXIDE 26.8 MMOL/L (24-32); eGFR 78 ML/MIN
--- NOTE | 2019-02-28 06:30 | NUR ---
Problems reprioritized. Patient report given, questions answered & plan of care reviewed with JORDEN JEFFERSON.
[2019-02-28 07:00] VITALS: BP 141/87
[2019-02-28] MEDS ORDERED: levoTHYROXINE 25mcg tablet PO SCH (07:00)
--- NOTE | 2019-02-28 07:18 | NUR ---
Patient in room [facility] 340. I have received report from GENARO LAM RN and had the opportunity to ask questions and assume patient care.
[2019-02-28] MEDS ORDERED: pantoprazole 40mg Tablet.DR PO SCH (07:30)
[2019-02-28] MEDS: HYDROcodone/acetaminophen 10/325mg tab PO PRN (07:57)
[2019-02-28] MEDS: heparin, porcine 5000 units/ml vial SQ SCH (07:59)
[2019-02-28] MEDS ORDERED: atorvastatin 20mg tablet PO SCH (08:00)
[2019-02-28] MEDS ORDERED: losartan 50mg tablet PO SCH (08:00)
[2019-02-28] MEDS ORDERED: non-formulary drug (Pantoprazole Sodium (Protonix) 1 TAB) PO SCH (08:00)
[2019-02-28] MEDS ORDERED: POTASSIUM CHLORIDE 8 MEQ PO SCH (08:00)
[2019-02-28] MEDS ORDERED: non-formulary drug (Levothyroxine Sodium (Synthroid) 1 TAB) PO SCH (08:00)
[2019-02-28] MEDS ORDERED: potassium chloride 8mEq ER tablet PO SCH (08:00)
--- NOTE | 2019-02-28 08:00 | NUR ---
GAVE PT NORCO 10. WATCHED HER SWALLOW IT
--- NOTE | 2019-02-28 09:42 | NUR ---
BEATRIZ FROM IR ROUNDED ON PT. HE FLUSHED AND CLAMPED THE TUBING, AND ORDERED A CHEST XRAY FOR 1030. IF NO PNEUMOTHORAX HE WILL DC
[2019-02-28 11:00] VITALS: BP 130/79
--- NOTE | 2019-02-28 12:03 | NUR ---
PT HAS DISCHARGE ORDERS IN. DC'D HER IV AND TELE. CALLED TELE AND SPOKE WITH NIRU. CALLED FAMILY FOR HER RIDE HOME. THEY WILL BE HERE AT 1130
== END 2019-02-28 14:27 | disposition home or self-care (01) | DRG 200 ==
LOC: SSTAY O 08:32 → OBSVTOIN 17:58 → SUR 3N 17:58
PROVIDERS: ADMIT Family Medicine; ATTEND Family Medicine
PROC: 0BBD3ZX Excision of Right Middle Lung Lobe, Percutaneous Approach, Diagnostic (ICD-10-PCS; principal; 2019-02-27)
PROC: 0W9930Z Drainage of Right Pleural Cavity with Drainage Device, Percutaneous Approach (ICD-10-PCS; 2019-02-27)
DX: J95.811 Postprocedural pneumothorax (principal); Z68.1 Body mass index [BMI] 19.9 or less, adult; F41.9 Anxiety disorder, unspecified; R91.1 Solitary pulmonary nodule; T81.82XA Emphysema (subcutaneous) resulting from a procedure, initial encounter; Y83.8 Other surgical procedures as the cause of abnormal reaction of the patient, or of later complication, without mention of misadventure at the time of the procedure; Y92.238 Other place in hospital as the place of occurrence of the external cause; E03.9 Hypothyroidism, unspecified; E78.5 Hyperlipidemia, unspecified; I10 Essential (primary) hypertension; G47.00 Insomnia, unspecified; K21.9 Gastro-esophageal reflux disease without esophagitis; Z81.8 Family history of other mental and behavioral disorders; Z83.3 Family history of diabetes mellitus; Z85.118 Personal history of other malignant neoplasm of bronchus and lung; Z85.819 Personal history of malignant neoplasm of unspecified site of lip, oral cavity, and pharynx; Z87.891 Personal history of nicotine dependence; Z98.891 History of uterine scar from previous surgery; Z88.8 Allergy status to other drugs, medicaments and biological substances; Z79.899 Other long term (current) drug therapy; Z90.49 Acquired absence of other specified parts of digestive tract
CPT/HCPCS: 32405; 32557; 36415; 71045; 77012; 80048; 85025; 85610; 87081; 88173; 88305; 99152; 99153; G0378; J1170; J1644; J2250; J2405; J3010; J7030

== ENCOUNTER 2020-04-27 17:56 | Emergency (ER) | payer BC, MEDICAID ==
[~2020-04-27] VITALS: Ht 160 cm; Wt 50.0 kg
[~2020-04-27 17:56] MED LIST changes: +ATOR20TA PO; +CLOP75TA15 PO; -HYDR-4383 PO; +LEVO50TA PO; +LORA1TAB PO; +LOSA25TA96 PO; -MAGN400O6 PO; -METO-292 PO; -METO-467 PO; -OMEP20TA5 PO; +PANT20TA18 PO; +POTA10TA19 PO; -SIME125C PO
[2020-04-27] MEDS ORDERED: normal saline 1000ML IV soln IVB ONE (18:15)
[2020-04-27 18:36] LABS: BASOPHILS # (AUTO) 0.1 X10'3 (0-0.2); BASOPHILS % (AUTO) 0.9 % (0-1); EOSINOPHILS # (AUTO) 0.1 X10'3 (0-0.9); HEMATOCRIT 36.2 % (35.0-45.0); HEMOGLOBIN 12.5 g/dl (12.0-16.0); LYMPHOCYTES # (AUTO) 1.4 X10'3 (1.1-4.8); LYMPHOCYTES % (AUTO) 14.8 % (21-51); MEAN CORPUSCULAR HEMOGLOBIN 35.3 PG (27.0-31.0); MEAN CORPUSCULAR HGB CONC 34.6 g/dL (33.0-36.5); MEAN PLATELET VOLUME 6.8 FL (7.4-10.4); MONOCYTES % (AUTO) 10.3 % (2-12); NEUTROPHILS # (AUTO) 7.2 X10'3 (1.8-7.7); PLATELET COUNT 223 X10'3 (140-440); RED BLOOD COUNT 3.54 X10'6 (4.20-5.60); RED CELL DISTRIBUTION WIDTH 12.6 % (11.5-14.5); WHITE BLOOD COUNT 9.8 X10'3 (4.5-11.0)
[2020-04-27 18:50] LABS: ALANINE AMINOTRANSFERASE 54 U/L (12-78); ALBUMIN 3.4 G/DL (3.4-5.0); ALBUMIN/GLOBULIN RATIO 0.9 (1.1-1.5); ALKALINE PHOSPHATASE 122 IU/L (46-116); ANION GAP 8 (8-16); ASPARTATE AMINO TRANSFERASE 34 U/L (10-37); BILIRUBIN,TOTAL 0.4 MG/DL (0.1-1.0); BLOOD UREA NITROGEN 16 MG/DL (7-18); BUN/CREATININE RATIO 15.5 (6.6-38.0); CHLORIDE 98 MMOL/L (99-107); CREATININE 1.03 MG/DL (0.40-0.90); GLUCOSE 91 MG/DL (70-104); POTASSIUM 3.3 MMOL/L (3.5-5.1); SODIUM 135 MMOL/L (135-145); TOTAL CARBON DIOXIDE 29.2 MMOL/L (24-32); TOTAL PROTEIN 7.1 G/DL (6.4-8.2); eGFR 52 ML/MIN
[2020-04-27 20:03] LABS: CLARITY,URINE CLEAR (Clear); COLOR,URINE YELLOW (Yellow); GLUCOSE, URINE NEGATIVE (Neg); KETONES,URINE NEGATIVE (Neg); LEUKOCYTE ESTERASE ,URINE NEGATIVE (Neg); NITRITES, URINE NEGATIVE (Neg); OCCULT BLOOD,URINE TRACE-INTACT (Neg); PROTEIN,URINE NEGATIVE (Neg); UROBILINOGEN,URINE 0.2 E.U/dL (0.2-1.0)
[2020-04-27 20:14] LABS: URINE AMPHETAMINE SCREEN NEGATIVE (Neg); URINE BARBITUATE SCREEN NEGATIVE (Neg); URINE BENZODIAZEPINES SCREEN NEGATIVE (Neg); URINE CANNABINOID SCREEN POSITIVE (Neg); URINE COCAINE SCREEN NEGATIVE (Neg); URINE METHADONE SCREEN NEGATIVE (Neg); URINE OPIATE SCREEN POSITIVE (Neg); URINE PHENCYCLIDINE SCREEN NEGATIVE (Neg)
[2020-04-27 20:20] LABS: UA COLLECTION TYPE CLN CATCH MIDSTREAM
[2020-04-27 20:21] LABS: BACTERIA,URINE FEW /HPF (Neg); RBC,URINE 0-2 /HPF (0-2); SQUAMOUS EPITHELIAL CELL,UR FEW /LPF (FEW); WBC,URINE NONE SEEN /HPF (0-4)
[2020-04-27 20:47] VITALS: BP 134/81
== END 2020-04-27 20:49 | disposition home or self-care (01) ==
LOC: ER 17:56
DX: S09.90XA Unspecified injury of head, initial encounter (principal); R29.6 Repeated falls; E78.00 Pure hypercholesterolemia, unspecified; E03.9 Hypothyroidism, unspecified; F32.9 Major depressive disorder, single episode, unspecified; F12.90 Cannabis use, unspecified, uncomplicated; Z98.890 Other specified postprocedural states; Z79.2 Long term (current) use of antibiotics; Z88.8 Allergy status to other drugs, medicaments and biological substances; Z79.899 Other long term (current) drug therapy; W19.XXXA Unspecified fall, initial encounter; Y93.89 Activity, other specified; Y92.89 Other specified places as the place of occurrence of the external cause; Y99.8 Other external cause status
CPT/HCPCS: 36415; 70450; 71045; 72125; 80053; 80305; 81001; 85025; 93005; 96360; 99285; J7030

== ENCOUNTER 2020-09-21 08:23 | Day surgery (SDC) | payer BC, MEDICAID ==
[2020-09-21] VITALS (22 sets, daily range): BP systolic 107–206; BP diastolic 85–118
[~2020-09-21] VITALS: Ht 160 cm; Wt 52.8 kg
[2020-09-21] MEDS ORDERED: normal saline 1000ml 1,000 ML IV SCH ×2 (09:00→11:40)
[2020-09-21] MEDS ORDERED: DICL100G30 (09:08)
[2020-09-21] MEDS ORDERED: SERT-433 PO (09:08)
[2020-09-21] MEDS ORDERED: AMIT-189 PO (09:08)
[2020-09-21] MEDS ORDERED: FLUT1BLS10 PO (09:08)
[2020-09-21] MEDS ORDERED: METO25TA6 PO (09:08)
[2020-09-21] MEDS ORDERED: CALCIUM CARBONATE (09:16)
[2020-09-21] MEDS ORDERED: BIOT5TAB PO (09:16)
[2020-09-21] MEDS ORDERED: ASCO-157 PO (09:16)
[2020-09-21] MEDS ORDERED: HEPARIN FLUSH IV (09:16)
[2020-09-21] MEDS ORDERED: UBID50TA3 PO (09:16)
[2020-09-21] MEDS ORDERED: CHOL100046 PO (09:16)
[2020-09-21] MEDS ORDERED: MAGN200T PO (09:16)
[2020-09-21 10:12] LABS: BASOPHILS # (AUTO) 0.1 X10'3 (0-0.2); BASOPHILS % (AUTO) 0.8 % (0-1); EOSINOPHILS # (AUTO) 0.2 X10'3 (0-0.9); EOSINOPHILS % (AUTO) 3.6 % (0-6); HEMATOCRIT 38.9 % (35.0-45.0); HEMOGLOBIN 13.1 g/dl (12.0-16.0); LYMPHOCYTES % (AUTO) 15.8 % (21-51); MEAN CORPUSCULAR HEMOGLOBIN 34.8 PG (27.0-31.0); MEAN CORPUSCULAR HGB CONC 33.6 g/dL (33.0-36.5); MEAN CORPUSCULAR VOLUME 103.5 FL (78-98); MONOCYTES # (AUTO) 0.5 X10'3 (0-0.9); MONOCYTES % (AUTO) 7.7 % (2-12); NEUTROPHILS # (AUTO) 4.5 X10'3 (1.8-7.7); NEUTROPHILS % (AUTO) 72.1 % (42-75); PLATELET COUNT 234 X10'3 (140-440); RED BLOOD COUNT 3.76 X10'6 (4.20-5.60); RED CELL DISTRIBUTION WIDTH 14.4 % (11.5-14.5); WHITE BLOOD COUNT 6.3 X10'3 (4.5-11.0)
[2020-09-21] MEDS ORDERED: fentaNYL/PF 50MCG/1 ML 2ML syringe ONE (10:19)
[2020-09-21] MEDS ORDERED: midazolam 1 mg/ML 2ml injection ONE (10:19)
[2020-09-21] MEDS ORDERED: gelatin sponge, absorbable (Gelfoam 12-7MM) sponge TP ONE (10:29)
--- NOTE | 2020-09-21 12:30 | NUR ---
Patient states that she has a headache, BP elevated but similar to baseline. Denies any change in vision, dizziness, and no verbal changes. Denies needs at this time.
[2020-09-21] MEDS ORDERED: acetaminophen 325mg tablet PO ONE (13:35)
--- NOTE | 2020-09-21 13:35 | NUR ---
Notified MD of headache and vital signs. Received order for Tylenol. Will continue to monitor.
== END 2020-09-21 15:05 | disposition home or self-care (01) ==
LOC: SSTAY O 08:23
PROVIDERS: ATTEND Radiology Vascular & Interventional Radiology
DX: R91.8 Other nonspecific abnormal finding of lung field (principal); C34.11 Malignant neoplasm of upper lobe, right bronchus or lung; Z20.822 Contact with and (suspected) exposure to COVID-19; I10 Essential (primary) hypertension; E03.9 Hypothyroidism, unspecified; G62.9 Polyneuropathy, unspecified; M19.90 Unspecified osteoarthritis, unspecified site; Z88.1 Allergy status to other antibiotic agents; Z88.8 Allergy status to other drugs, medicaments and biological substances; Z87.891 Personal history of nicotine dependence
CPT/HCPCS: 32408; 36415; 71045; 71046; 85025; 87635; 88341; 88342; J2250; J3010; J7030; 77012; 88173; 88305; 88360; 99152; 99153